=== PATIENT | female | born 1940 | race Caucasian/White ===

== ENCOUNTER 2018-04-07 14:25 | Inpatient (IN) ==
[2018-04-07] MEDS ORDERED: NS 1,000 ML IV ONE ×2 (15:07→17:05)
[2018-04-07 15:37] LABS: BASO# 0.02 X1000 (0.0-0.2); BASO% 0.4 % (0.0-0.8); EOS# 0.05 X1000 (0.0-0.7); EOS% 0.9 % (0.0-10.0); HEMOGLOBIN 10.4 g/dL (12.0-16.0); IMM GRAN# 0.01 X1000 (0.0-0.04); IMM GRAN% 0.2 % (0.0-0.5); LYMPH# 1.07 X1000 (1.2-3.4); MCH 30.3 PG (27-31); MCHC 33.5 g/dL (33-37); MCV 90.4 FL (81-99); MONO# 0.86 X1000 (0.11-0.59); MONO% 15.3 % (1.7-9.3); MPV 9.7 FL (7.4-10.4); NEUT# 3.61 X1000 (1.4-6.5); NEUT% 64.2 % (42.2-75.2); PLT 352 X1000 (130-400); RBC 3.43 XMIL (4.2-5.4); RDW 11.9 % (11.5-14.5); WBC 5.62 X1000 (4.8-10.8)
[2018-04-07 16:00] LABS: ESTIMATED GFR > 60
[2018-04-07 16:21] LABS: AGAP 7; ALBUMIN 3.5 g/dL (3.5-5.0); ALKALINE PHOSPHATASE 87 U/L (32-104); BUN 10 mg/dL (8-22); CHLORIDE 83 mmol/L (98-107); COSMO 238; CREATININE 0.7 mg/dL (0.5-0.9); GLUCOSE 136 mg/dL (70-104); GOT 18 U/L (10-30); GPT 11 U/L (10-36); POTASSIUM 4.9 mmol/L (3.5-5.1); TCO2 27 mmol/L (25-35); TOTAL PROTEIN 6.6 g/dL (6.3-8.3)
[2018-04-07 16:22] LABS: SODIUM 117 mmol/L (136-145)
--- NOTE | 2018-04-07 18:55 | PROVIDER DOCUMENTATION ---
This chart was entered by Mile Ambrocio Scribe, acting as scribe for Zuleima Mae MD. HPI-General Adult - General Chief Complaint: Abnormal Lab[s] Stated Complaint: SENT FROM [facility] FOR FLUIDS Time Seen by Provider: 04/07/18 14:59 Source: patient, other ([facility] tech) Allergies/Adverse Reactions: Patient Allergies Allergy/AdvReac Type Severity Reaction Status Date / Time acetaminophen [From Tylenol] Allergy RASH Verified 12/20/14 21:18 aspirin Allergy SWELLING Verified 12/20/14 21:18 benztropine mesylate * Allergy Unknown Verified 12/20/14 21:18 [From Cogentin] Cephalosporins Allergy RASH Verified 12/20/14 21:18 codeine Allergy RASH Verified 12/20/14 21:18 divalproex sodium Allergy SWELLING Verified 12/20/14 21:19 [From Depakote] Penicillins Allergy RASH Verified 12/20/14 21:18 Sulfa (Sulfonamide AdvReac ITCHING Verified 12/18/14 10:25 Antibiotics) Home Medications: Home Medication List Medication Instructions Recorded Confirmed Last Taken Type ATORVAstatin [Lipitor] 20 mg PO DAILY 01/16/18 02/10/18 Unknown History Clopidogrel [Plavix] 75 mg PO DAILY #0 02/01/18 02/10/18 Unknown Rx Metformin [Glucophage] 500 mg PO DAILY 02/10/18 04/02/18 Unknown History Donepezil HCl [Aricept] 5 mg PO DAILY #30 tablet 03/01/18 Unknown Rx Quetiapine [Seroquel] 25 mg PO QHS tablet 03/01/18 Unknown Rx Ibuprofen [Ibu-200] 400 mg PO Q8H PRN PRN 04/02/18 04/02/18 Unknown History Melatonin/Pyridoxine [Melatonin 5 5 mg PO HS 04/02/18 04/02/18 Unknown History mg Tablet] Memantine [Namenda] 5 mg PO BID 04/02/18 04/02/18 Unknown History Ziprasidone [Geodon] 40 mg PO QHS 04/02/18 04/02/18 Unknown History - History of Present Illness -Gen Adult Nature of Presenting Problems: 77 yowf presents to ed from [facility]. pt was sent to ed for fluids due to abnormal labs. pt has pulled x2 IV's out today while at [facility] and has been agitated with freq falls. pt had negative CT 04/06/18 Location of Pain/Injury: reports: none Pain Radiation: reports: no radiation Quality of Pain: reports: none Severity: reports: mild Onset/Duration: reports: unsure Context/Activities at Onset: reports: light activity Modifying Factors: improves with: nothing Associated Symptoms: denies: back/neck pain, chest pain, cough, dizziness, fever /chills, shortness of breath, vomiting Similar Symptoms Previously?: Yes Recently seen or treated by another doctor?: Yes (recently seen in ed) Review of Systems - Adult - REVIEW OF SYSTEMS - ADULT ROS:: per [facility] tech Constitutional: denies: chills, fever Eyes: denies: blurred vision, double vision Ears, Nose, Mouth & Throat: reports: no symptoms reported Cardiovascular: denies: chest pain, palpitations Respiratory: denies: shortness of breath, wheezing Gastrointestinal: denies: abdominal pain, diarrhea, nausea, vomiting Genitourinary: reports: no symptoms reported Musculoskeletal: denies: back pain, neck pain Integumentary: reports: no symptoms reported Neurological: denies: dizziness/vertigo, headache/migraines Psychiatric: reports: no symptoms reported Endocrine: reports: no symptoms reported Hematologic/Lymphatic: reports: no symptoms reported Allergic/Immunologic: reports: no symptoms reported All Other Systems: Reviewed and Negative Past History - Adult - PAST MEDICAL HISTORY-ADULT Review of Records: reports: Old Records Reviewed, Nursing Assessment Review, Medications Reviewed, Social history reviewed & non-contributory. Major Childhood Illnesses: reports: denies history Cardiovascular: reports: hyperlipidemia Respiratory: reports: COPD Gastrointestinal: reports: GERD Obstetrical/Gynecological: reports: denies history Genitourinary: reports: denies history Musculoskeletal: reports: arthritis Neurological: reports: dementia Psychiatric: reports: anxiety, psychiatric problems, schizophrenia Endocrine/Immune: reports: anemia, thyroid disorder Other Conditions: reports: denies history - PRIOR SURGERIES/PROCEDURES Surgical/Procedure History: reports: tonsillectomy, other, appendectomy - IMMUNIZATION STATUS Childhood Immunizations: NUTD, See Nurse Assessment Flu Vaccine: See Nurse Assessment - FAMILY HISTORY Family History: reviewed, not pertinent - SOCIAL HISTORY Smoking: other (unknown) Living Situation: other ([facility]) Physical Exam-General - PHYSICAL EXAM-ADULT Initial Vital Signs Reviewed: Yes - CONSTITUTIONAL General Appearance: alert, no apparent distress, thin - EYES Eyes: PERRL/EOMI, pink conjunctivae - HEAD, EARS, NOSE, MOUTH & THROAT HENMT: moist mucous membranes - NECK Neck: non-tender, full range of motion, supple, normal inspection - RESPIRATORY Respiratory: chest non-tender, lungs clear, normal breath sounds - CARDIOVASCULAR Cardiovascular: normal peripheral pulses, regular rate, rhythm - GASTROINTESTINAL (ABDOMEN) Abdominal Exam: normal bowel sounds, non tender - LYMPHATIC Lymphatic: no adenopathy - MUSCULOSKELETAL Back Exam: normal inspection, no CVA tenderness, no vertebral tenderness Extremity: normal range of motion, no pedal edema, no calf tenderness, normal capillary refill, pelvis stable - SKIN Integumentary: normal turgor, warm/dry, ecchymosis (to face and BUE) - PSYCHIATRIC Psych/Mental Status: normal mood/affect, normal thought content, normal thought process Progress - PLAN OF CARE/RESULTS Progress/Plan/Lab Results: Vital Signs - 8 hr 04/07/18 14:44 Temperature 98 F Pulse Rate 83 Respiratory Rate 18 Blood Pressure 121/80 O2 Sat by Pulse Oximetry 99 Orders Category Date Time Status CBC WITH ELECTRONIC DIFF [HEME] Stat Lab 04/07/18 14:50 Ordered COMPREHENSIVE METABOLIC PANEL [CHEM] Stat Lab 04/07/18 14:58 Ordered Result Diagrams: 04/07/18 15:15 04/07/18 18:05 - REASSESSMENT Reassessment #1 Time Reassessed: 16:55 ( at bedside) Status: improving - CONSULTS/PCP/HOSPITALIST Notification #1 *Consult/PCP/Hospitalist*: Dr. Blunt Time Discussed: 19:15 Consult Disposition: Admit Departure - Departure Date of Disposition Decision: 04/07/18 Time of Disposition Decision: 19:08 DIAGNOSIS: Hyponatremia Disposition: ADMITTED INPATIENT 09 Certified Medical Emergency: Urgent Condition: Poor Referrals and Follow-Ups: None,PCP [Primary Care Provider] - - Critical Care Note This patient required my direct & personal management of CC.: Yes Total Time (mins): 45 Critical Care Statement: This patient required my direct personal management to treat or rule out processes, the absence of which, could potentiallly result in sudden, clinically significant life or limb threatening deterioration. Attestation - Physician/ TENISHA Attestation Patient care was provided by Advanced Practice Provider:: No The physician spent face to face time with patient:: Yes Advanced Practice Provider documentation review:: Supervising physician onsite and consulted in the evaluation and care of this patient. The physician did have a face to face encounter with the patient. This chart was documented by the indicated scribe, (Mile Ambrocio Scribe) and accurately reflects the services I performed and decisions made by me, Zuleima Mae MD, as attested by the provider's signature.
[2018-04-07 19:01] LABS: ESTIMATED GFR > 60
[2018-04-07 19:09] LABS: AGAP 8; BUN 8 mg/dL (8-22); CALCIUM 7.8 mg/dL (8.8-10.2); CHLORIDE 87 mmol/L (98-107); COSMO 238; CREATININE 0.6 mg/dL (0.5-0.9); GLUCOSE 158 mg/dL (70-104); POTASSIUM 4.6 mmol/L (3.5-5.1); TCO2 23 mmol/L (25-35)
[2018-04-07 19:11] LABS: SODIUM 117 mmol/L (136-145)
[2018-04-07] MEDS ORDERED: SAMSCA PO ONE (21:45)
[2018-04-07] MEDS ORDERED: DESYREL PO PRN ×2 (21:49→22:00)
[2018-04-07] MEDS: NS 1,000 ML IV SCH (22:00)
[2018-04-08] MEDS: NAMENDA PO SCH ×4 (00:47→20:42)
[2018-04-08] MEDS: PRILOSEC PO SCH (06:17)
[2018-04-08] MEDS: NS 1,000 ML IV SCH (06:33)
[2018-04-08 07:04] LABS: BASO# 0.02 X1000 (0.0-0.2); BASO% 0.4 % (0.0-0.8); EOS# 0.06 X1000 (0.0-0.7); EOS% 1.2 % (0.0-10.0); HEMATOCRIT 34.1 % (37.0-47.0); HEMOGLOBIN 11.6 g/dL (12.0-16.0); IMM GRAN# 0.01 X1000 (0.0-0.04); IMM GRAN% 0.2 % (0.0-0.5); LYMPH# 1.07 X1000 (1.2-3.4); LYMPH% 21.5 % (20.5-51.1); MCH 31.4 PG (27-31); MCV 92.4 FL (81-99); MONO# 0.64 X1000 (0.11-0.59); MONO% 12.9 % (1.7-9.3); MPV 9.6 FL (7.4-10.4); NEUT# 3.17 X1000 (1.4-6.5); NEUT% 63.8 % (42.2-75.2); PLT 344 X1000 (130-400); RBC 3.69 XMIL (4.2-5.4); RDW 12.3 % (11.5-14.5); WBC 4.97 X1000 (4.8-10.8)
[2018-04-08 07:14] LABS: AGAP 13; BUN 5 mg/dL (8-22); CALCIUM 8.9 mg/dL (8.8-10.2); CHLORIDE 97 mmol/L (98-107); COSMO 258; CREATININE 0.5 mg/dL (0.5-0.9); ESTIMATED GFR > 60; GLUCOSE 93 mg/dL (70-104); POTASSIUM 4.5 mmol/L (3.5-5.1); SODIUM 130 mmol/L (136-145); TCO2 20 mmol/L (25-35)
[2018-04-08 08:02] LABS: BILIRUBIN URINE NEGATIVE (NEGATIVE); BLOOD URINE NEGATIVE (NEGATIVE); CLARITY CLEAR (CLEAR); COLOR YELLOW; GLUCOSE URINE NEGATIVE (NEGATIVE); KETONE URINE NEGATIVE (NEGATIVE); LEUKOCYTES URINE NEGATIVE (NEGATIVE); NITRITE URINE NEGATIVE (NEGATIVE); PROTEIN URINE NEGATIVE (NEGATIVE); SP GRAVITY URINE 1.005; UROBILINOGEN URINE NORMAL
[2018-04-08 08:11] LABS: URINE EPITHELIAL CELLS <10 /HPF (<10); URINE SOURCE CLEAN CATCH
[2018-04-08] MEDS: ARICEPT PO SCH (10:03)
[2018-04-08] MEDS: FOLIC ACID PO SCH (10:03)
[2018-04-08] MEDS: NICODERM PATCH TD SCH (10:03)
[2018-04-08] MEDS: MAG-OX PO SCH ×2 (10:03→20:42)
[2018-04-08] MEDS: GEODON PO SCH (10:03)
--- NOTE | 2018-04-08 10:48 | HISTORY AND PHYSICAL ---
CHIEF COMPLAINT: Low sodium. HISTORY OF PRESENT ILLNESS: This is a 77-year-old female with history of dementia, Alzheimer's, schizophrenia, bipolar disorder, COPD, hypertension, hypothyroidism. She presents to the emergency room from [facility] for treatment for hyponatremia. Labs were drawn earlier in the day and she had a sodium of 117. This was repeated in the emergency room and the patient was given a dose of Samsca. The patient had been hospitalized in early January and then once again February 10 for hyponatremia once again. During the admission on the , Celexa and trazodone were held and it was noted that sodium increased. They were restarted and it was noted that sodium did decrease once again. PAST MEDICAL HISTORY: According to the chart the patient has dementia, COPD, schizophrenia, bipolar disorder, Alzheimer's, COPD, hypertension, hypothyroid, hyperlipidemia, diabetes, osteoarthritis, breast cancer, and vitamin D deficiency. PAST SURGICAL HISTORY: Laparotomy, tonsillectomy, appendectomy, and left knee surgery. SOCIAL HISTORY: She is currently a patient at [facility]. ALLERGIES: According to her chart are Tylenol, aspirin, Cogentin, cephalosporins, codeine, Depakote, penicillin, and sulfa. HOME MEDICATIONS: A list will be obtained from her medications from [facility] and continued as is appropriate. REVIEW OF SYSTEMS: Unable to obtain as the patient is drowsy at this time. PHYSICAL EXAMINATION: GENERAL: This is a 77-year-old female who is lying in the bed, in no distress. VITAL SIGNS: Blood pressure is 115/81, with a heart rate of 81, respirations are 18. EYES: Pupils are sluggish to react. Sclerae anicteric. HENT: Head is normocephalic, atraumatic. Mucous membranes are moist. NECK: Supple. Trachea midline. CARDIOVASCULAR: Regular rate and rhythm. S1 and S2 are appreciated. PULMONARY: Breath sounds are clear. No increased work of breathing noted. GASTROINTESTINAL: Soft, nondistended, with bowel sounds in all 4 quadrants. NEUROLOGIC: She is sedated. She does move all extremities at random. ASSESSMENT AND PLAN: 1. Hyponatremia. We will hold the patient's trazodone. Repeat labs this morning. The patient's sodium is 130 this morning. Of note, she was given Samsca last night. We will hold her trazodone as in the past sodium has dropped while being on trazodone and will monitor. 2. Diabetes mellitus. She will be placed on a diabetic diet. We will continue home medications as appropriate. We will trend blood sugars. 3. Recent Escherichia coli urinary tract infection. She had a culture return on the with ESBL negative E. coli, for which she was treated with 1 g of Rocephin IV followed by Levaquin 750 p.o. and Macrobid 100 mg b.i.d. for 5 days. We will complete the Macrobid and monitor. 4. History of hypothyroid. She is on no medications. TSH was 1.7. 5. History of schizophrenia, bipolar disorder. We will continue medications as is appropriate. 6. Alzheimer's dementia. We will continue Namenda and Aricept. 7. Further treatments pending hospital course. Dictated by REUBEN Fisher for Geo Warren MD This chart was documented by, REUBEN Fisher and accurately reflects the services performed, treatment plan and medical decisions as attested by the providers signature Geo Warren MD. cc: REUBEN Fisher MD
[2018-04-08] MEDS ORDERED: PYRIDOXINE PO SCH (21:00)
[2018-04-08] MEDS ORDERED: MELATONIN PO SCH (21:00)
[2018-04-09] MEDS: NS 1,000 ML IV SCH ×3 (00:09→15:05)
[2018-04-09] MEDS: PRILOSEC PO SCH (06:11)
[2018-04-09 06:58] LABS: BASO# 0.03 X1000 (0.0-0.2); BASO% 0.4 % (0.0-0.8); EOS# 0.06 X1000 (0.0-0.7); EOS% 0.9 % (0.0-10.0); HEMATOCRIT 31.4 % (37.0-47.0); HEMOGLOBIN 10.5 g/dL (12.0-16.0); IMM GRAN# 0.02 X1000 (0.0-0.04); IMM GRAN% 0.3 % (0.0-0.5); LYMPH# 1.49 X1000 (1.2-3.4); LYMPH% 21.5 % (20.5-51.1); MCH 30.4 PG (27-31); MCHC 33.4 g/dL (33-37); MONO# 0.92 X1000 (0.11-0.59); MONO% 13.3 % (1.7-9.3); MPV 9.9 FL (7.4-10.4); NEUT# 4.42 X1000 (1.4-6.5); NEUT% 63.6 % (42.2-75.2); PLT 428 X1000 (130-400); RBC 3.45 XMIL (4.2-5.4); RDW 12.2 % (11.5-14.5); WBC 6.94 X1000 (4.8-10.8)
[2018-04-09 07:13] LABS: AGAP 9; BUN 6 mg/dL (8-22); CALCIUM 9.5 mg/dL (8.8-10.2); CHLORIDE 94 mmol/L (98-107); COSMO 260; CREATININE 0.6 mg/dL (0.5-0.9); ESTIMATED GFR > 60; GLUCOSE 122 mg/dL (70-104); SODIUM 130 mmol/L (136-145); TCO2 28 mmol/L (25-35)
[2018-04-09] MEDS ORDERED: SAMSCA PO SCH (09:00)
[2018-04-09] MEDS: GEODON PO SCH (09:26)
[2018-04-09] MEDS: ARICEPT PO SCH (09:26)
[2018-04-09] MEDS: MAG-OX PO SCH ×2 (09:26→20:58)
[2018-04-09] MEDS: FOLIC ACID PO SCH (09:26)
[2018-04-09] MEDS: NAMENDA PO SCH ×2 (09:26→20:58)
[2018-04-09] MEDS: NICODERM PATCH TD SCH (09:27)
--- NOTE | 2018-04-09 10:57 | PROGRESS NOTE ---
DATE: 04/09/2018 SUBJECTIVE: Patient is in a very good mood this morning and is sitting in her bed, reading a book. She denies having any acute complaints. OBJECTIVE: Vital Signs: Temperature 98 degrees, pulse 70 per minute, respiratory rate 18 per minute, blood pressure 146/73, pulse oximetry 90 percent on room air. General: The patient is alert and awake. She does not appear to be in any acute distress. Cardiovascular System: First and second heart sounds are audible without any murmurs or gallops. Respiratory System: No respiratory distress noted. Bilateral lung air entry is good without any rales or rhonchi. Gastrointestinal System: Abdomen is soft and nondistended. Normal bowel sounds are present. DIAGNOSTIC DATA: CBC shows hemoglobin of 10.5 and hematocrit 31.4. This is stable when compared to her previous labs. Chemistry showed sodium levels of 130, which was the same yesterday. Rest of the basic metabolic panel is nondiagnostic. IMPRESSION: 1. Hyponatremia. The patient's sodium levels have improved and it was thought to be secondary to her psych medication trazodone that has been discontinued. She appears to be in good shape as far as her hyponatremia is concerned. 2. Type 2 diabetes mellitus. The patient's glucose levels are slightly elevated, but overall they are stable. I am going to obtain hemoglobin A1c today. 3. Schizophrenia and Alzheimer dementia have been stable. The patient will continue with donepezil, along with memantine and Geodon. 4. The patient has been abandoned by her family, and there is an issue of her being transferred back to the assisted living facility. Therefore, [facility] has been involved and we will see what happens next. cc: Everardo Tenorio MD
[2018-04-09 11:05] LABS: HEMOGLOBIN A1C 6.4 % (4.8-6.0)
[2018-04-09] MEDS: ATIVAN IM PRN (11:21)
[2018-04-10 06:09] LABS: BASO# 0.04 X1000 (0.0-0.2); BASO% 0.6 % (0.0-0.8); EOS# 0.09 X1000 (0.0-0.7); EOS% 1.4 % (0.0-10.0); HEMATOCRIT 32.2 % (37.0-47.0); HEMOGLOBIN 10.7 g/dL (12.0-16.0); IMM GRAN# 0.01 X1000 (0.0-0.04); IMM GRAN% 0.2 % (0.0-0.5); LYMPH% 25.4 % (20.5-51.1); MCH 30.7 PG (27-31); MCHC 33.2 g/dL (33-37); MCV 92.3 FL (81-99); MONO# 0.79 X1000 (0.11-0.59); MONO% 12.5 % (1.7-9.3); MPV 9.6 FL (7.4-10.4); NEUT# 3.78 X1000 (1.4-6.5); NEUT% 59.9 % (42.2-75.2); PLT 460 X1000 (130-400); RBC 3.49 XMIL (4.2-5.4); RDW 12.8 % (11.5-14.5); WBC 6.31 X1000 (4.8-10.8)
[2018-04-10] MEDS: NS 1,000 ML IV SCH ×3 (06:21→22:43)
[2018-04-10 06:22] LABS: AGAP 10; BUN 12 mg/dL (8-22); CALCIUM 9.6 mg/dL (8.8-10.2); CHLORIDE 93 mmol/L (98-107); COSMO 263; CREATININE 0.7 mg/dL (0.5-0.9); ESTIMATED GFR > 60; GLUCOSE 114 mg/dL (70-104); POTASSIUM 4.1 mmol/L (3.5-5.1); SODIUM 131 mmol/L (136-145); TCO2 28 mmol/L (25-35)
[2018-04-10] MEDS: PRILOSEC PO SCH (08:21)
[2018-04-10] MEDS: MAG-OX PO SCH ×2 (08:22→20:28)
[2018-04-10] MEDS: FOLIC ACID PO SCH (08:22)
[2018-04-10] MEDS: GEODON PO SCH (08:22)
[2018-04-10] MEDS: NAMENDA PO SCH ×2 (08:22→20:28)
[2018-04-10] MEDS: ARICEPT PO SCH (08:22)
[2018-04-10] MEDS: NICODERM PATCH TD SCH (10:32)
--- NOTE | 2018-04-10 11:36 | PROGRESS NOTE ---
DATE: 04/10/2018 SUBJECTIVE: Patient denies having any acute complaints this morning. OBJECTIVE: Vital Signs: Temperature 97.6 degrees, pulse 80 per minute, respiratory rate 16 per minute, blood pressure 129/71, pulse oximetry 100% on room air. General: Patient is alert and oriented x3. She does not appear to be in any acute distress this morning. Cardiovascular System: First and second heart sounds are audible without any murmurs or gallops. Respiratory System: No respiratory distress noted. Bilateral lung air entry is good without any rales or rhonchi. Gastrointestinal System: Abdomen is soft and nondistended. Normal bowel sounds are present. DIAGNOSTIC DATA: CBC shows stable hemoglobin and hematocrit of 10.7 and 32.2. Rest of the CBC is nondiagnostic. Basic metabolic panel showed improved sodium level of 131. Rest of the BMP is nondiagnostic. IMPRESSION: 1. Hyponatremia. 2. Type 2 diabetes mellitus. 3. Schizophrenia. 4. Alzheimer dementia. PLAN: 1. Patient's sodium levels have improved, and they were thought to be secondary to her trazodone that has been discontinued. She appears to be in good shape, and no further treatment will be provided in that regard, except for continued monitoring. 2. Diabetes, schizophrenia and Alzheimer dementia have been stable. Therefore, we are going to continue with her current medications and care. 3. Patient has been abandoned by her family and the issue has been transferred to [facility]. [facility] has been involved and they are going to find a place for the patient. cc: Everardo Tenorio MD
[2018-04-11] MEDS: NS 1,000 ML IV SCH ×2 (06:19→22:00)
[2018-04-11] MEDS: PRILOSEC PO SCH (06:22)
[2018-04-11 07:31] LABS: AGAP 9; BUN 12 mg/dL (8-22); CALCIUM 9.1 mg/dL (8.8-10.2); CHLORIDE 96 mmol/L (98-107); COSMO 264; CREATININE 0.7 mg/dL (0.5-0.9); ESTIMATED GFR > 60; GLUCOSE 118 mg/dL (70-104); POTASSIUM 4.2 mmol/L (3.5-5.1); SODIUM 131 mmol/L (136-145); TCO2 26 mmol/L (25-35)
[2018-04-11] MEDS: GEODON PO SCH (08:16)
[2018-04-11] MEDS: ARICEPT PO SCH (08:16)
[2018-04-11] MEDS: MAG-OX PO SCH ×2 (08:16→20:11)
[2018-04-11] MEDS: NICODERM PATCH TD SCH (08:17)
[2018-04-11] MEDS: NAMENDA PO SCH ×2 (08:17→20:11)
[2018-04-11] MEDS: FOLIC ACID PO SCH (08:17)
[2018-04-12] MEDS: PRILOSEC PO SCH (06:14)
[2018-04-12] MEDS: NS 1,000 ML IV SCH ×3 (06:48→14:08)
[2018-04-12 07:12] LABS: BASO# 0.05 X1000 (0.0-0.2); BASO% 0.7 % (0.0-0.8); EOS# 0.35 X1000 (0.0-0.7); EOS% 4.7 % (0.0-10.0); HEMATOCRIT 36.2 % (37.0-47.0); HEMOGLOBIN 11.9 g/dL (12.0-16.0); IMM GRAN# 0.01 X1000 (0.0-0.04); IMM GRAN% 0.1 % (0.0-0.5); LYMPH# 2.37 X1000 (1.2-3.4); LYMPH% 31.7 % (20.5-51.1); MCH 30.3 PG (27-31); MCHC 32.9 g/dL (33-37); MCV 92.1 FL (81-99); MONO# 0.71 X1000 (0.11-0.59); MONO% 9.5 % (1.7-9.3); MPV 9.4 FL (7.4-10.4); NEUT# 3.99 X1000 (1.4-6.5); NEUT% 53.3 % (42.2-75.2); PLT 514 X1000 (130-400); RBC 3.93 XMIL (4.2-5.4); RDW 12.6 % (11.5-14.5); WBC 7.48 X1000 (4.8-10.8)
[2018-04-12 07:22] LABS: AGAP 11; ALBUMIN 3.9 g/dL (3.5-5.0); ALKALINE PHOSPHATASE 108 U/L (32-104); BUN 9 mg/dL (8-22); CALCIUM 9.4 mg/dL (8.8-10.2); CHLORIDE 91 mmol/L (98-107); COSMO 261; CREATININE 0.6 mg/dL (0.5-0.9); ESTIMATED GFR > 60; GLUCOSE 131 mg/dL (70-104); GOT 19 U/L (10-30); GPT 14 U/L (10-36); POTASSIUM 3.8 mmol/L (3.5-5.1); SODIUM 130 mmol/L (136-145); TCO2 27 mmol/L (25-35); TOTAL PROTEIN 7.1 g/dL (6.3-8.3)
[2018-04-12] MEDS: ARICEPT PO SCH (08:50)
[2018-04-12] MEDS: MAG-OX PO SCH ×2 (08:51→20:40)
[2018-04-12] MEDS: BLISTEX MEDICATED BERRY LIP BALM TOP PRN (08:51)
[2018-04-12] MEDS: FOLIC ACID PO SCH (08:51)
[2018-04-12] MEDS: NICODERM PATCH TD SCH (08:52)
[2018-04-12] MEDS: NAMENDA PO SCH ×2 (08:52→20:40)
[2018-04-12] MEDS: GEODON PO SCH (08:52)
--- NOTE | 2018-04-12 09:07 | PROGRESS NOTE ---
DATE: 04/11/2018 SUBJECTIVE: The patient denies having any acute complaints this morning. OBJECTIVE: Vital signs: Temperature 97.5, pulse rate is 79, respiratory rate 18 per minute, blood pressure 153/47, pulse ox 100 percent on room air.General: The patient is alert and oriented. She does not appear to be in any acute distress. Cardiovascular: First and second heart sounds are audible without any murmurs or gallops. Respiratory: No respiratory distress noted. Bilateral air entry equal. No rales or rhonchi. Gastrointestinal: Abdomen is soft and nondistended. It is nontender on palpation. Normal bowel sounds are present. DIAGNOSTIC DATA: CBC shows sodium levels of 131. Rest of the basic metabolic panel is nondiagnostic. IMPRESSION: 1. Hyponatremia that has now improved and stable. 2. Type 2 diabetes mellitus. 3. Schizophrenia, Alzheimer's dementia all of which are also stable. PLAN: The patient's sodium levels are now stabilized and were thought to be secondary to trazodone, which she was taking prior to this admission. We will continue to monitor her sodium levels for now. Diabetes, schizophrenia, and Alzheimer's dementia are all currently stable. The patient has been abandoned by her family and the issue has been referred to [facility]. [facility] in place for patient, and we will wait for that help. cc: Everardo Tenorio MD
--- NOTE | 2018-04-12 15:48 | PROGRESS NOTE ---
DATE: 04/12/2018 SUBJECTIVE: Patient has no major complaints. OBJECTIVE: Blood pressure 171/94, heart rate of 91, respiratory rate 16, temperature 97.8 degrees, 98% on room air.Cardiovascular: Regular rate and rhythm. Pulmonary: Bilateral breath sounds, clear to auscultation. GI: Soft, nontender, nondistended. LABORATORY DATA: White count is 7, hemoglobin and hematocrit 11, 36, platelets 514,000, sodium 130. PROBLEM LIST: 1. Hyponatremia which appears to be stable. Unclear if this is syndrome of inappropriate antidiuretic hormone secretion. It is improved I went ahead and dosed her with Samsca. She has responded to that in the past although has not really improved her mental status . 2. Type 2 diabetes is stable currently. 3. Schizophrenia, Alzheimer's. She is on her current medication. She seems pretty stable at the moment. 4. Disposition pending her clinical status. I anticipate discharge soon. There is report of Department [employer] being involved but that is not actually the case. Department [employer] Human [employer] was spoken to today and she is not an active open case so we are going to try to get her back to her regular facility. She has not been belligerent here. Her sodium is stable I think enough for discharge so continue to follow otherwise. cc: Adan Scott MD
[2018-04-12] MEDS: ATIVAN IM PRN (20:40)
[2018-04-12] MEDS: MELATONIN PO SCH (20:40)
[2018-04-13] MEDS: PRILOSEC PO SCH (06:08)
[2018-04-13 07:04] LABS: BASO# 0.03 X1000 (0.0-0.2); BASO% 0.5 % (0.0-0.8); EOS# 0.27 X1000 (0.0-0.7); EOS% 4.2 % (0.0-10.0); HEMATOCRIT 36.5 % (37.0-47.0); HEMOGLOBIN 12.3 g/dL (12.0-16.0); IMM GRAN# 0.01 X1000 (0.0-0.04); IMM GRAN% 0.2 % (0.0-0.5); LYMPH# 2.11 X1000 (1.2-3.4); LYMPH% 32.6 % (20.5-51.1); MCH 30.6 PG (27-31); MCHC 33.7 g/dL (33-37); MCV 90.8 FL (81-99); MONO# 0.59 X1000 (0.11-0.59); MONO% 9.1 % (1.7-9.3); MPV 9.3 FL (7.4-10.4); NEUT# 3.46 X1000 (1.4-6.5); NEUT% 53.4 % (42.2-75.2); PLT 548 X1000 (130-400); RBC 4.02 XMIL (4.2-5.4); RDW 12.2 % (11.5-14.5); WBC 6.47 X1000 (4.8-10.8)
[2018-04-13 07:20] LABS: ESTIMATED GFR > 60
[2018-04-13 07:26] LABS: AGAP 10; BUN 9 mg/dL (8-22); CALCIUM 9.3 mg/dL (8.8-10.2); CHLORIDE 87 mmol/L (98-107); COSMO 250; CREATININE 0.6 mg/dL (0.5-0.9); GLUCOSE 131 mg/dL (70-104); POTASSIUM 4.3 mmol/L (3.5-5.1); SODIUM 124 mmol/L (136-145); TCO2 27 mmol/L (25-35)
[2018-04-13] MEDS: FOLIC ACID PO SCH (08:52)
[2018-04-13] MEDS: MAG-OX PO SCH ×2 (08:53→20:49)
[2018-04-13] MEDS: NAMENDA PO SCH ×2 (08:53→20:49)
[2018-04-13] MEDS: NICODERM PATCH TD SCH (08:53)
[2018-04-13] MEDS: ARICEPT PO SCH (08:53)
[2018-04-13] MEDS: GEODON PO SCH (08:53)
[2018-04-13] MEDS ORDERED: SAMSCA PO ONE (12:00)
--- NOTE | 2018-04-13 17:42 | PROGRESS NOTE ---
DATE: 04/13/2018 SUBJECTIVE: Patient has no focal complaints. OBJECTIVE: Vital signs: Blood pressure 104/51, heart rate was 58, respiratory rate of 16, temperature 97.4 degrees, 96% on room air. Cardiovascular: Regular rate and rhythm. Pulmonary: Bilateral breath sounds. Clear to auscultation. GI: Soft, nontender, nondistended. Bowel sounds are positive. LABORATORY DATA: Her sodium is 124. Rest of her labs look okay. PROBLEM LIST: 1. Hyponatremia which is chronic. I do think she may need long-acting Samsca. We just cannot keep her sodium above otherwise, but at the same time I would not consider particularly symptomatic. 2. Dementia, Alzheimer's type. She is pretty well behaved but the plan will be to stabilize her and then have [facility] re-evaluate her before transfer. We will see what her sodium level is tomorrow. cc: Adan Scott MD
[2018-04-13 19:19] LABS: AGAP 10; BUN 13 mg/dL (8-22); CALCIUM 9.2 mg/dL (8.8-10.2); CHLORIDE 93 mmol/L (98-107); COSMO 266; CREATININE 0.9 mg/dL (0.5-0.9); ESTIMATED GFR > 60; GLUCOSE 182 mg/dL (70-104); POTASSIUM 4.4 mmol/L (3.5-5.1); SODIUM 130 mmol/L (136-145); TCO2 28 mmol/L (25-35)
[2018-04-13] MEDS: SODIUM CHLORIDE PO SCH (20:49)
[2018-04-13] MEDS: MELATONIN PO SCH (20:49)
[2018-04-14] MEDS: PRILOSEC PO SCH (06:33)
[2018-04-14 07:40] LABS: BASO# 0.02 X1000 (0.0-0.2); BASO% 0.3 % (0.0-0.8); EOS# 0.14 X1000 (0.0-0.7); EOS% 2.3 % (0.0-10.0); HEMATOCRIT 32.2 % (37.0-47.0); HEMOGLOBIN 10.7 g/dL (12.0-16.0); IMM GRAN# 0.02 X1000 (0.0-0.04); IMM GRAN% 0.3 % (0.0-0.5); LYMPH# 2.19 X1000 (1.2-3.4); LYMPH% 36.1 % (20.5-51.1); MCH 30.7 PG (27-31); MCHC 33.2 g/dL (33-37); MCV 92.3 FL (81-99); MONO# 0.62 X1000 (0.11-0.59); MONO% 10.2 % (1.7-9.3); MPV 9.7 FL (7.4-10.4); NEUT# 3.08 X1000 (1.4-6.5); NEUT% 50.8 % (42.2-75.2); PLT 503 X1000 (130-400); RBC 3.49 XMIL (4.2-5.4); RDW 12.6 % (11.5-14.5); WBC 6.07 X1000 (4.8-10.8)
[2018-04-14 07:59] LABS: AGAP 10; BUN 14 mg/dL (8-22); CALCIUM 9.1 mg/dL (8.8-10.2); CHLORIDE 96 mmol/L (98-107); COSMO 269; CREATININE 0.7 mg/dL (0.5-0.9); ESTIMATED GFR > 60; GLUCOSE 132 mg/dL (70-104); POTASSIUM 4.4 mmol/L (3.5-5.1); SODIUM 133 mmol/L (136-145); TCO2 26 mmol/L (25-35)
[2018-04-14] MEDS: NICODERM PATCH TD SCH (09:14)
[2018-04-14] MEDS: SODIUM CHLORIDE PO SCH ×3 (09:14→21:09)
[2018-04-14] MEDS: ARICEPT PO SCH ×3 (09:14→12:07)
[2018-04-14] MEDS: NAMENDA PO SCH ×4 (09:14→21:09)
[2018-04-14] MEDS: MAG-OX PO SCH ×2 (09:15→21:09)
[2018-04-14] MEDS: FOLIC ACID PO SCH (09:15)
[2018-04-14] MEDS: GEODON PO SCH ×3 (09:15→12:07)
[2018-04-14] MEDS: SAMSCA PO SCH (12:06)
--- NOTE | 2018-04-14 15:53 | PROGRESS NOTE ---
DATE: 04/14/2018 SUBJECTIVE: Patient has no focal complaints. She is also very recalcitrant. She did kind of bundled up when asked her and refused to participate completely with the exam, but other than that, she has been stable. This morning she also refused her medications. OBJECTIVE: Vital signs: Blood pressure 123/53, heart rate 90, respiratory rate 18, temperature 98.2 degrees. Cardiovascular: Regular rate and rhythm. Pulmonary: Bilateral breath sounds. Clear to auscultation. GI: Soft, nontender, nondistended. Bowel sounds are positive. LABORATORY DATA: Her sodium is up to 133, which is good. ASSESSMENT AND PLAN: 1. 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 She will likely need long-term Samsca or at least a course just to see if that maintains her hyponatremia. She did agree to take it this morning. 2. Alzheimer's dementia with underlying psychotic disorder. She is on Geodon. [facility] will re-evaluate her once her sodium has been stable for 48 hours, I believe. So, we will check her numbers tomorrow and hopefully we can get her home. cc: Adan Scott MD
[2018-04-14] MEDS: MELATONIN PO SCH (21:09)
[2018-04-14] MEDS: ATIVAN IM PRN (21:09)
[2018-04-15] MEDS: PRILOSEC PO SCH (06:05)
[2018-04-15 07:30] LABS: AGAP 9; BUN 15 mg/dL (8-22); CALCIUM 9.3 mg/dL (8.8-10.2); CHLORIDE 95 mmol/L (98-107); COSMO 268; CREATININE 0.7 mg/dL (0.5-0.9); ESTIMATED GFR > 60; GLUCOSE 173 mg/dL (70-104); POTASSIUM 4.3 mmol/L (3.5-5.1); SODIUM 131 mmol/L (136-145); TCO2 26 mmol/L (25-35)
[2018-04-15] MEDS: SAMSCA PO SCH (10:38)
[2018-04-15] MEDS: GEODON PO SCH (10:39)
[2018-04-15] MEDS: NAMENDA PO SCH ×2 (10:39→22:00)
[2018-04-15] MEDS: SODIUM CHLORIDE PO SCH ×2 (10:39→22:00)
[2018-04-15] MEDS: FOLIC ACID PO SCH (10:39)
[2018-04-15] MEDS: NICODERM PATCH TD SCH ×2 (10:40→10:45)
[2018-04-15] MEDS: MAG-OX PO SCH ×2 (10:40→22:00)
[2018-04-15] MEDS: ARICEPT PO SCH (10:40)
--- NOTE | 2018-04-15 16:03 | PROGRESS NOTE ---
DATE: 04/15/2018 SUBJECTIVE: She has no complaints. She is lying in bed. She is not really answering any questions though she kind of just refuses. OBJECTIVE: Blood pressure 124/55, heart rate 76, respiratory 16, and temperature 97.8 degrees.Cardiovascular: Regular rate and rhythm. Pulmonary: Bilateral breath sounds. Clear to auscultation. GI: Soft, nontender, and nondistended. Bowel sounds are positive. LABORATORY DATA: Her sodium is at 131. She seems to be doing okay. PROBLEM LIST: 1. 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 We will continue Samsca. She seems to be doing okay on that. 2. Alzheimer's dementia with behavioral difficulties. [facility] has re- evaluated her, and feels like she is stable to go back to her long-term care facility. She does not need further [facility] psych evaluation. I think there may be monitoring her at the facility. DISPOSITION: We will therefore continue her current regimens. I would recommend a course of Samsca just to see if perhaps that can keep her sodium level stabilized enough that she could be there alf. cc: Adan Scott MD
[2018-04-15] MEDS: MELATONIN PO SCH (22:00)
[2018-04-16] MEDS: PRILOSEC PO SCH (06:50)
[2018-04-16 06:57] LABS: AGAP 9; BUN 15 mg/dL (8-22); CALCIUM 9.2 mg/dL (8.8-10.2); CHLORIDE 96 mmol/L (98-107); COSMO 268; CREATININE 0.7 mg/dL (0.5-0.9); ESTIMATED GFR > 60; GLUCOSE 120 mg/dL (70-104); POTASSIUM 4.2 mmol/L (3.5-5.1); SODIUM 133 mmol/L (136-145); TCO2 28 mmol/L (25-35)
[2018-04-16] MEDS: SODIUM CHLORIDE PO SCH ×2 (08:20→22:20)
[2018-04-16] MEDS: FOLIC ACID PO SCH (08:20)
[2018-04-16] MEDS: SAMSCA PO SCH (08:20)
[2018-04-16] MEDS: MAG-OX PO SCH ×2 (08:20→22:19)
[2018-04-16] MEDS: ARICEPT PO SCH (08:20)
[2018-04-16] MEDS: NAMENDA PO SCH ×2 (08:20→22:20)
[2018-04-16] MEDS: GEODON PO SCH (08:21)
[2018-04-16] MEDS: NICODERM PATCH TD SCH (08:22)
--- NOTE | 2018-04-16 21:09 | PROGRESS NOTE ---
DATE: 04/16/2018 SUBJECTIVE: Patient has no focal complaints. OBJECTIVE: Blood pressure 129/54, heart rate of 88, respiratory 16, temperature 98.1 degrees, 96% on room air.Cardiovascular: Regular rate and rhythm. Pulmonary: Bilateral breath sounds. Clear to auscultation. GI: Soft, nontender, nondistended. Bowel sounds are positive. LABORATORY DATA: White count is 6, hemoglobin and hematocrit 10 and 32, platelets 503,000. PROBLEM LIST: 1. Hyponatremia, syndrome of inappropriate antidiuretic hormone. Her sodium is stable on her current Samsca. She is also on sodium chloride. She seems well. 2. Dementia is stable. Continue her current medications. 3. Disposition: [facility] will not accept her back and her regular correction will not accept except her back because of again lack of guardianship. We are not sure exactly, she is unable to take care of herself and family is not willing to participate in her guardianship, so she is also a [facility] case and we are going to see how things look long-term for her as well. cc: Adan Scott MD
[2018-04-16] MEDS: MELATONIN PO SCH (22:21)
[2018-04-17] MEDS: PRILOSEC PO SCH (06:45)
[2018-04-17 06:49] LABS: AGAP 8; BUN 13 mg/dL (8-22); CALCIUM 9.5 mg/dL (8.8-10.2); CHLORIDE 96 mmol/L (98-107); COSMO 267; CREATININE 0.7 mg/dL (0.5-0.9); ESTIMATED GFR > 60; GLUCOSE 110 mg/dL (70-104); POTASSIUM 4.8 mmol/L (3.5-5.1); SODIUM 133 mmol/L (136-145); TCO2 29 mmol/L (25-35)
[2018-04-17] MEDS: NAMENDA PO SCH ×2 (09:25→23:55)
[2018-04-17] MEDS: SODIUM CHLORIDE PO SCH ×2 (09:25→23:55)
[2018-04-17] MEDS: GEODON PO SCH (09:25)
[2018-04-17] MEDS: ARICEPT PO SCH (09:25)
[2018-04-17] MEDS: FOLIC ACID PO SCH (09:25)
[2018-04-17] MEDS: MAG-OX PO SCH ×2 (09:25→23:54)
[2018-04-17] MEDS: SAMSCA PO SCH (09:25)
[2018-04-17] MEDS: NICODERM PATCH TD SCH (09:26)
--- NOTE | 2018-04-17 23:40 | PROGRESS NOTE ---
DATE: 04/17/2018 SUBJECTIVE: Patient has no major complaints. OBJECTIVE: Blood pressure 119/63, heart rate of 76, respiratory rate 18, temperature 97.7 degrees, 100% on room air.Cardiovascular: Regular rate and rhythm. Pulmonary: Bilateral breath sounds, clear to auscultation. GI: Soft, nontender, nondistended. Bowel sounds are positive. Sodium is 133. PROBLEM LIST: 1. Hyponatremia presumably due to syndrome of inappropriate antidiuretic hormone secretion. She seems stable on Samsca, sodium chloride. 2. Dementia appears to be overall stable. 3. Disposition. She has no real long-term disposition. Will kind of see how she is doing. She cannot take care of herself. She does not have guardianship. R is involved so we are looking at guardianship care for her and we will see how she does. cc: Adan Scott MD
[2018-04-17] MEDS: MELATONIN PO SCH (23:55)
[2018-04-18] MEDS: PRILOSEC PO SCH (06:36)
[2018-04-18 07:23] LABS: AGAP 8; BUN 12 mg/dL (8-22); CALCIUM 9.9 mg/dL (8.8-10.2); CHLORIDE 98 mmol/L (98-107); COSMO 273; CREATININE 0.7 mg/dL (0.5-0.9); ESTIMATED GFR > 60; GLUCOSE 118 mg/dL (70-104); POTASSIUM 4.6 mmol/L (3.5-5.1); SODIUM 136 mmol/L (136-145); TCO2 30 mmol/L (25-35)
[2018-04-18] MEDS: GEODON PO SCH (09:48)
[2018-04-18] MEDS: MAG-OX PO SCH ×2 (09:48→20:31)
[2018-04-18] MEDS: ARICEPT PO SCH (09:48)
[2018-04-18] MEDS: NAMENDA PO SCH ×2 (09:48→20:31)
[2018-04-18] MEDS: FOLIC ACID PO SCH (09:48)
[2018-04-18] MEDS: NICODERM PATCH TD SCH (09:49)
[2018-04-18] MEDS: SODIUM CHLORIDE PO SCH ×2 (09:58→20:31)
--- NOTE | 2018-04-18 17:21 | PROGRESS NOTE ---
DATE: 04/18/2018 SUBJECTIVE: The patient is sitting up in bed. She is pleasant. No major complaints. OBJECTIVE: Vital signs: Blood pressure is 120/63, heart rate is 79, respiratory rate 18, temperature 97.3 degrees, 99% on room air. Cardiovascular: Irregular rate and rhythm. Pulmonary: Bilateral breath sounds. Clear to auscultation. Gastrointestinal: Soft, nontender, nondistended. Bowel sounds are positive. DIAGNOSTIC STUDIES: Her sodium is up to 136. Rest of her numbers look good. PROBLEM LIST: 1. Hyponatremia. That seems to be stabilizing. I have taken her off of Samsca due to the cost. We will kind of monitor her off Samsca. She seems to be doing okay on sodium chloride and fluid restriction. We may not need that long-term, although we have set up outpatient coverage if it is required. 2. Dementia. Appears to be stable on current medications. 3. Diabetes. Also stable on current medications. DISPOSITION: She is a [facility] case, so like her neighbor, we are waiting on placement, but I think there will be too much issue with that because it looks like placement will be an option in the next several weeks, potentially. We will continue to follow closely. cc: Adan Scott MD
[2018-04-18] MEDS: MELATONIN PO SCH (20:31)
[2018-04-19] MEDS: PRILOSEC PO SCH (06:37)
[2018-04-19 07:27] LABS: AGAP 9; BUN 14 mg/dL (8-22); CALCIUM 9.3 mg/dL (8.8-10.2); CHLORIDE 98 mmol/L (98-107); COSMO 270; CREATININE 0.7 mg/dL (0.5-0.9); ESTIMATED GFR > 60; GLUCOSE 118 mg/dL (70-104); POTASSIUM 4.3 mmol/L (3.5-5.1); SODIUM 134 mmol/L (136-145); TCO2 27 mmol/L (25-35)
[2018-04-19] MEDS: ARICEPT PO SCH (08:02)
[2018-04-19] MEDS: GEODON PO SCH (08:02)
[2018-04-19] MEDS: GLUCOPHAGE PO SCH (08:03)
[2018-04-19] MEDS: NAMENDA PO SCH ×2 (08:03→20:16)
[2018-04-19] MEDS: FOLIC ACID PO SCH (08:03)
[2018-04-19] MEDS: NICODERM PATCH TD SCH (08:03)
[2018-04-19] MEDS: SODIUM CHLORIDE PO SCH ×2 (08:03→20:16)
[2018-04-19] MEDS: MAG-OX PO SCH ×2 (08:03→20:15)
[2018-04-19] MEDS: MELATONIN PO SCH (20:16)
--- NOTE | 2018-04-19 22:31 | PROGRESS NOTE ---
DATE: 04/19/2018 SUBJECTIVE: Patient herself is sitting up in the bed she is pleasant. She has no complaints. PHYSICAL: Temperature 98, pulse 80, respiratory 18, BP 140/79.General: Patient is no current respiratory distress awake. HEENT: Normocephalic Neck: Supple. CV: Regular rate. Chest: Clear nonlabored, no crackles. Abdomen: Soft, nondistended. Extremities: Moves all extremities. ASSESSMENT: 1. Hyponatremia, sodium is better but still low 134 . 2. Dementia. 3. Diabetes. PLAN: As noted previously patient will be a [facility] placement issue. They were involved and we will continue to treat her symptomatically until their issues are resolved. cc: Umair Underwood MD
[2018-04-20] MEDS: PRILOSEC PO SCH ×2 (05:57→06:10)
[2018-04-20 06:23] LABS: AGAP 9; BUN 15 mg/dL (8-22); CALCIUM 9.5 mg/dL (8.8-10.2); CHLORIDE 98 mmol/L (98-107); COSMO 271; CREATININE 0.7 mg/dL (0.5-0.9); ESTIMATED GFR > 60; GLUCOSE 130 mg/dL (70-104); POTASSIUM 4.1 mmol/L (3.5-5.1); SODIUM 134 mmol/L (136-145); TCO2 27 mmol/L (25-35)
[2018-04-20] MEDS: NAMENDA PO SCH ×2 (08:36→22:11)
[2018-04-20] MEDS: GLUCOPHAGE PO SCH (08:36)
[2018-04-20] MEDS: MAG-OX PO SCH ×2 (08:36→22:11)
[2018-04-20] MEDS: GEODON PO SCH (08:36)
[2018-04-20] MEDS: SODIUM CHLORIDE PO SCH ×2 (08:37→22:10)
[2018-04-20] MEDS: FOLIC ACID PO SCH (08:37)
[2018-04-20] MEDS: NICODERM PATCH TD SCH (08:37)
[2018-04-20] MEDS: ARICEPT PO SCH (08:37)
[2018-04-20] MEDS: MELATONIN PO SCH (22:10)
--- NOTE | 2018-04-20 22:32 | PROGRESS NOTE ---
DATE: 04/20/2018 SUBJECTIVE: Patient seen, no complaints. PHYSICAL EXAMINATION: Vital Signs: Reviewed. Temperature 97.3 degrees, pulse 85, respiratory 18, BP 150/61. General: Patient is in no distress. Physical exam is unchanged. She is currently lying in the bed. She is in no distress. ASSESSMENT: 1. Hyponatremia, stable. 2. Dementia. 3. Diabetes. PLAN: We will continue to await DHR and placement. Continue symptomatic treatment. cc: Umair Underwood MD
[2018-04-21] MEDS ORDERED: BENADRYL IV PRN (05:54)
[2018-04-21] MEDS ORDERED: HALDOL IV PRN (05:55)
[2018-04-21] MEDS: PRILOSEC PO SCH (06:37)
[2018-04-21] MEDS: MAG-OX PO SCH ×2 (08:50→22:14)
[2018-04-21] MEDS: SODIUM CHLORIDE PO SCH ×2 (08:50→22:14)
[2018-04-21] MEDS: FOLIC ACID PO SCH (08:50)
[2018-04-21] MEDS: GLUCOPHAGE PO SCH (08:50)
[2018-04-21] MEDS: GEODON PO SCH (08:50)
[2018-04-21] MEDS: NAMENDA PO SCH ×2 (08:51→22:14)
[2018-04-21] MEDS: NICODERM PATCH TD SCH (08:54)
[2018-04-21] MEDS: ARICEPT PO SCH (09:09)
[2018-04-21] MEDS: MELATONIN PO SCH (22:14)
--- NOTE | 2018-04-22 00:38 | PROGRESS NOTE ---
DATE: 04/21/2018 SUBJECTIVE: Patient has no new complaints. She is confused, disoriented. Yesterday thought she was blind so she sat with her eyes closed all day. PHYSICAL EXAMINATION: Vital Signs: Temperature 97.3 degrees, pulse 74, respiratory 18, BP 136/74. General: Patient is in no current respiratory distress. She is lying in the bed, refuses to answer questions. HEENT: Normocephalic. Neck: Supple. CARDIOVASCULAR: Regular rate. Chest: Clear. Abdomen: Soft. Extremities: Moves all extremities. ASSESSMENT: 1. Hyponatremia, stable. 2. Dementia. 3. Diabetes. PLAN: We will continue patient the hospital until which time discharge plans can be made through [facility]. cc: Umair Underwood MD
[2018-04-22] MEDS: PRILOSEC PO SCH (06:14)
[2018-04-22 07:06] LABS: AGAP 9; BUN 14 mg/dL (8-22); CALCIUM 9.5 mg/dL (8.8-10.2); CHLORIDE 94 mmol/L (98-107); COSMO 264; CREATININE 0.7 mg/dL (0.5-0.9); ESTIMATED GFR > 60; GLUCOSE 106 mg/dL (70-104); POTASSIUM 4.5 mmol/L (3.5-5.1); SODIUM 131 mmol/L (136-145); TCO2 28 mmol/L (25-35)
[2018-04-22] MEDS: GEODON PO SCH (08:34)
[2018-04-22] MEDS: NICODERM PATCH TD SCH (08:34)
[2018-04-22] MEDS: GLUCOPHAGE PO SCH (08:34)
[2018-04-22] MEDS: MAG-OX PO SCH ×2 (08:34→20:51)
[2018-04-22] MEDS: SODIUM CHLORIDE PO SCH ×2 (08:35→20:50)
[2018-04-22] MEDS: ARICEPT PO SCH (08:35)
[2018-04-22] MEDS: NAMENDA PO SCH ×2 (08:35→20:50)
[2018-04-22] MEDS: FOLIC ACID PO SCH (08:35)
[2018-04-22] MEDS: MELATONIN PO SCH (20:50)
--- NOTE | 2018-04-23 00:17 | PROGRESS NOTE ---
DATE: 04/22/2018 SUBJECTIVE: Patient has no new complaints today. PHYSICAL EXAMINATION: Vital Signs: Temperature 97.3 degrees, pulse 60, respiratory 16, BP 116/56. General: Patient is in no current distress. HEENT: Normocephalic. Neck: Supple. Cardiovascular: Regular rate. Chest: Clear. Abdomen: Soft. Extremities: Moves all extremities. ASSESSMENT: 1. Hyponatremia. Sodium is stable at 134. 2. Dementia. 3. Diabetes. PLAN: The patient is in the hospital currently and will remain so until [facility] suitable discharge plans. We will continue to follow. cc: Umair Underwood MD MTDD
[2018-04-23] MEDS: PRILOSEC PO SCH (06:11)
[2018-04-23 06:28] LABS: AGAP 8; BUN 12 mg/dL (8-22); CALCIUM 9.1 mg/dL (8.8-10.2); CHLORIDE 95 mmol/L (98-107); COSMO 257; CREATININE 0.6 mg/dL (0.5-0.9); ESTIMATED GFR > 60; GLUCOSE 106 mg/dL (70-104); POTASSIUM 4.3 mmol/L (3.5-5.1); SODIUM 128 mmol/L (136-145); TCO2 26 mmol/L (25-35)
[2018-04-23] MEDS: GEODON PO SCH ×2 (07:55→19:38)
[2018-04-23] MEDS: MAG-OX PO SCH ×3 (07:55→20:47)
[2018-04-23] MEDS: SODIUM CHLORIDE PO SCH ×3 (07:55→20:47)
[2018-04-23] MEDS: FOLIC ACID PO SCH ×2 (07:56→19:38)
[2018-04-23] MEDS: GLUCOPHAGE PO SCH (07:56)
[2018-04-23] MEDS: ARICEPT PO SCH ×2 (07:56→19:37)
[2018-04-23] MEDS: NAMENDA PO SCH ×3 (07:57→20:47)
[2018-04-23] MEDS: NICODERM PATCH TD SCH (19:38)
[2018-04-23] MEDS: MELATONIN PO SCH (20:47)
--- NOTE | 2018-04-24 02:57 | PROGRESS NOTE ---
DATE: 04/23/2018 SUBJECTIVE: The patient has no new complaints. PHYSICAL EXAMINATION: Vital Signs: Temperature 97, pulse 60, respiratory rate 16, BP 116/56. General: The patient is in no current distress. HEENT: Normocephalic. Neck: Supple. No JVD. Cardiovascular: Regular rate. Chest: Clear. Abdomen: Soft. Extremities: Moves all extremities. ASSESSMENT: 1. Hyponatremia, resolved. 2. Dementia. 3. Diabetes. PLAN: We will continue the patient in the hospital. We are currently awaiting placement. We will treat symptomatically. Further orders as needed. cc: Umair Underwood MD
[2018-04-24] MEDS: PRILOSEC PO SCH (06:39)
[2018-04-24] MEDS: FOLIC ACID PO SCH (09:34)
[2018-04-24] MEDS: ARICEPT PO SCH (09:34)
[2018-04-24] MEDS: GEODON PO SCH (09:34)
[2018-04-24] MEDS: MAG-OX PO SCH ×2 (09:34→21:46)
[2018-04-24] MEDS: GLUCOPHAGE PO SCH (09:34)
[2018-04-24] MEDS: NICODERM PATCH TD SCH (09:35)
[2018-04-24] MEDS: SODIUM CHLORIDE PO SCH ×2 (09:35→21:46)
[2018-04-24] MEDS: NAMENDA PO SCH ×2 (09:37→21:46)
[2018-04-24] MEDS: MELATONIN PO SCH (21:46)
--- NOTE | 2018-04-25 00:17 | PROGRESS NOTE ---
DATE: 04/24/2018 SUBJECTIVE: Patient has no new complaints. She is noted to ambulate with assistance. PHYSICAL EXAMINATION: Vital Signs: Temperature 97.3 degrees, pulse 70, respiratory 20, BP 122/66. General: Patient is awake, alert. She is in no distress. HEENT: Normocephalic. Neck: Supple. Cardiovascular: Regular rate. Chest: Clear. Abdomen: Soft. Extremities: Moves all extremities. ASSESSMENT: 1. Hyponatremia, stable. 2. Dementia, stable. 3. Diabetes. PLAN: We will continue patient in the hospital. Continue symptomatic care. Continue to await transition to long-term care. cc: Umair Underwood MD
[2018-04-25] MEDS: BLISTEX MEDICATED BERRY LIP BALM TOP PRN (02:29)
[2018-04-25] MEDS: ATIVAN IM PRN ×2 (02:35→20:53)
[2018-04-25 05:48] LABS: MCH 31.1 PG (27-31); MCHC 33.3 g/dL (33-37); MCV 93.2 FL (81-99); MPV 10.3 FL (7.4-10.4); RBC 3.54 XMIL (4.2-5.4); RDW 13.1 % (11.5-14.5); WBC 5.99 X1000 (4.8-10.8)
[2018-04-25 06:24] LABS: AGAP 10; ALBUMIN 3.6 g/dL (3.5-5.0); ALKALINE PHOSPHATASE 93 U/L (32-104); BUN 12 mg/dL (8-22); CALCIUM 9.3 mg/dL (8.8-10.2); CHLORIDE 96 mmol/L (98-107); COSMO 268; CREATININE 0.7 mg/dL (0.5-0.9); ESTIMATED GFR > 60; GLUCOSE 130 mg/dL (70-104); GOT 17 U/L (10-30); GPT 10 U/L (10-36); MAGNESIUM 2.1 mg/dL (1.5-2.7); POTASSIUM 4.3 mmol/L (3.5-5.1); SODIUM 133 mmol/L (136-145); TCO2 27 mmol/L (25-35); TOTAL PROTEIN 6.4 g/dL (6.3-8.3)
[2018-04-25] MEDS: PRILOSEC PO SCH (06:56)
[2018-04-25] MEDS: SODIUM CHLORIDE PO SCH ×2 (09:46→21:44)
[2018-04-25] MEDS: ARICEPT PO SCH (09:46)
[2018-04-25] MEDS: NAMENDA PO SCH ×2 (09:47→20:53)
[2018-04-25] MEDS: GLUCOPHAGE PO SCH (09:47)
[2018-04-25] MEDS: GEODON PO SCH (09:47)
[2018-04-25] MEDS: NICODERM PATCH TD SCH (09:47)
[2018-04-25] MEDS: MAG-OX PO SCH ×2 (09:47→20:53)
[2018-04-25] MEDS: FOLIC ACID PO SCH (09:47)
--- NOTE | 2018-04-25 19:17 | PROGRESS NOTE ---
DATE: 04/25/2018 Patient continues to be confused. Thankfully she is no longer blind. However she continues to walk out of her room and get lost. PHYSICAL: Temperature 97.2, pulse 72, respiratory 20, BP 147/58.General: Patient is awake, alert, she is in no physical or respiratory distress. HEENT: Normocephalic. Neck: Supple. CV: Regular rate. Chest: Clear. Abdomen: Soft. ASSESSMENT: 1. Dementia. The patient goes through periods where she thinks she is blind and states she is unable find her food. She has times where she refused to get out of bed and again times where she refuses to get back in bed. We will continue comfort measures and will follow. 2. Adult failure to thrive. Patient is incapable of caring for herself at home. Will continue to await [facility] assistance in transitioning to long-term care. cc: Umair Underwood MD
[2018-04-25] MEDS: MELATONIN PO SCH (20:53)
[2018-04-26] MEDS: PRILOSEC PO SCH (06:36)
[2018-04-26] MEDS: SODIUM CHLORIDE PO SCH ×2 (08:34→21:02)
[2018-04-26] MEDS: FOLIC ACID PO SCH (08:35)
[2018-04-26] MEDS: GLUCOPHAGE PO SCH (08:35)
[2018-04-26] MEDS: ARICEPT PO SCH (08:35)
[2018-04-26] MEDS: MAG-OX PO SCH ×2 (08:35→21:01)
[2018-04-26] MEDS: NAMENDA PO SCH ×2 (08:35→21:02)
[2018-04-26] MEDS: NICODERM PATCH TD SCH (08:35)
[2018-04-26] MEDS: GEODON PO SCH (08:35)
--- NOTE | 2018-04-26 18:15 | PROGRESS NOTE ---
DATE: 04/26/2018 SUBJECTIVE: Patient has no major complaints. OBJECTIVE: Vital signs: Blood pressure is stable 148/61, heart rate of 81, respiratory rate 18, temperature 97.6 degrees. Cardiovascular: Regular rate and rhythm. Pulmonary: Bilateral breath sounds clear to auscultation. Gastrointestinal: Soft, nontender, nondistended. Bowel sounds are positive. Extremity: No clubbing or cyanosis. Lymphatic: No peripheral edema. Neurological: Nonfocal. DIAGNOSTIC STUDIES: She has a sodium yesterday of 133. I think we can probably check that intermittently. PROBLEM LIST: 1. Hyponatremia, presumably due to syndrome of inappropriate antidiuretic hormone secretion (SIADH). She is stable. I think she is on salt tablets. We will continue to follow. 2. Dementia. She still has intermittent confusion, intermittent symptomatology. She is on Aricept, Namenda, and Geodon at 40 daily. I am going to bump up her Namenda to 10 b.i.d. DISPOSITION: She is a DHR case. We are waiting on custodianship/guardianship to decide about long-term placement. cc: Adan Scott MD
[2018-04-26] MEDS: ATIVAN IM PRN (21:01)
[2018-04-26] MEDS: MELATONIN PO SCH (21:02)
[2018-04-27] MEDS: PRILOSEC PO SCH (06:31)
[2018-04-27] MEDS: NICODERM PATCH TD SCH ×2 (10:50→10:53)
[2018-04-27] MEDS: GEODON PO SCH (10:50)
[2018-04-27] MEDS: MAG-OX PO SCH ×2 (10:50→21:45)
[2018-04-27] MEDS: FOLIC ACID PO SCH (10:50)
[2018-04-27] MEDS: ARICEPT PO SCH (10:50)
[2018-04-27] MEDS: SODIUM CHLORIDE PO SCH ×2 (10:50→21:44)
[2018-04-27] MEDS: NAMENDA PO SCH ×2 (10:51→21:44)
[2018-04-27] MEDS: GLUCOPHAGE PO SCH (10:51)
--- NOTE | 2018-04-27 15:47 | PROGRESS NOTE ---
DATE: 04/27/2018 SUBJECTIVE: Patient has no major complaints. OBJECTIVE: Vital signs: Blood pressure is 142/64, heart rate of 76, respiratory rate 18, temperature 97.5 degrees, 99% on room air. Cardiovascular: Regular rate and rhythm. Pulmonary: Bilateral breath sounds. Clear to auscultation. GI: Soft, nontender, nondistended. Bowel sounds are positive. LABORATORY: no new labs ASSESSMENT: 1. Hyponatremia, syndrome of inappropriate antidiuretic hormone. The patient is stable on salt tablets/fluid restriction 2. Dementia. She is on Aricept, Namenda, and Geodon. DISPOSITION: Waiting for long term and R. DISCHARGE CONDITION: Pending guardianship. cc: Adan Scott MD MTDD
[2018-04-27] MEDS ORDERED: HALDOL IM PRN (20:42)
[2018-04-27] MEDS: DESYREL PO SCH (21:44)
[2018-04-27] MEDS: ATIVAN PO PRN (21:44)
[2018-04-27] MEDS: MELATONIN PO SCH (21:45)
[2018-04-28] MEDS: PRILOSEC PO SCH (06:40)
[2018-04-28] MEDS: SODIUM CHLORIDE PO SCH ×2 (11:19→21:20)
[2018-04-28] MEDS: GLUCOPHAGE PO SCH (11:19)
[2018-04-28] MEDS: GEODON PO SCH (11:19)
[2018-04-28] MEDS: ARICEPT PO SCH (11:19)
[2018-04-28] MEDS: NAMENDA PO SCH ×2 (11:19→21:19)
[2018-04-28] MEDS: MAG-OX PO SCH ×2 (11:19→21:19)
[2018-04-28] MEDS: NICODERM PATCH TD SCH (11:20)
[2018-04-28] MEDS: FOLIC ACID PO SCH (11:20)
--- NOTE | 2018-04-28 18:16 | PROGRESS NOTE ---
DATE: 04/28/2018 SUBJECTIVE: Patient has no major complaints. OBJECTIVE: Vital Signs: Blood pressure 111/65, heart rate of 85, respiratory rate 18, temperature 97.5 degrees and 100% on room air. Cardiovascular: Regular rate and rhythm. Pulmonary: Bilateral breath sounds. Clear to auscultation. GI: Soft, nontender, and nondistended. Bowel sounds are positive. IMPRESSION AND PLAN: Orientation questions, she said it was 2019. She said she was in [place]. With prompting, she said [facility]. She said she is here because she is sick so her level of cognition I guess varies. Now, she is on Geodon. She is on Namenda. She is on Aricept with known Alzheimer's type dementia and reported schizophrenia. In any case, the patient though is not really able to take care of herself. She is not able to manage despite being oriented only. She is able to manage her affairs, and she will need permanent placement. We are looking at guardianship and going through that process. cc: Adan Scott MD
[2018-04-28] MEDS: DESYREL PO SCH (21:19)
[2018-04-28] MEDS: ATIVAN PO PRN (21:19)
[2018-04-28] MEDS: MELATONIN PO SCH (21:20)
[2018-04-29 06:30] LABS: AGAP 9; BUN 14 mg/dL (8-22); CALCIUM 9.1 mg/dL (8.8-10.2); CHLORIDE 97 mmol/L (98-107); COSMO 267; CREATININE 0.7 mg/dL (0.5-0.9); ESTIMATED GFR > 60; GLUCOSE 110 mg/dL (70-104); POTASSIUM 4.7 mmol/L (3.5-5.1); SODIUM 133 mmol/L (136-145); TCO2 27 mmol/L (25-35)
[2018-04-29] MEDS: PRILOSEC PO SCH (07:24)
[2018-04-29] MEDS: GLUCOPHAGE PO SCH (09:59)
[2018-04-29] MEDS: GEODON PO SCH (10:02)
[2018-04-29] MEDS: ARICEPT PO SCH (10:03)
[2018-04-29] MEDS: FOLIC ACID PO SCH (10:03)
[2018-04-29] MEDS: SODIUM CHLORIDE PO SCH ×2 (10:04→22:24)
[2018-04-29] MEDS: NICODERM PATCH TD SCH (10:04)
[2018-04-29] MEDS: NAMENDA PO SCH ×2 (10:05→22:25)
[2018-04-29] MEDS: MAG-OX PO SCH ×2 (10:12→22:24)
--- NOTE | 2018-04-29 12:37 | PROGRESS NOTE ---
DATE: 04/29/2018 SUBJECTIVE: This morning Ms. Rose refers to be doing fairly okay. Does not have any hallucinations OBJECTIVE: General: Ms. Rose is a 77-year-old female. She is in bed. No distress. HEENT: Mucosa is pink and moist. Anicteric. Acyanotic. Neck: Supple. Chest : Clear to auscultation. There were no crepitations, no rhonchi. Cardiovascular: Regular rate and rhythm. There are no murmurs, no rubs, no gallops. Abdomen: Soft. Extremities: No pedal edema. Distal pulses are present. Central nervous system: Patient is awake, alert, oriented to person but disoriented to place and time. The patient also seems to have remarkable memory gaps, and she is very repetitive in combing her hair. CURRENT MEDICATIONS: Include 1. Donepezil 10 mg daily. 2. Folic acid 1 mg daily. 3. Haldol p.r.n. 4. Magnesium 800 b.i.d. 5. Melatonin 5 mg at bedtime. 6. Namenda 10 mg b.i.d. 7. Omeprazole 40 mg daily. 8. Trazodone 25 mg at bedtime. 9. Geodon 40 mg p.o. daily. ASSESSMENT: 1. Severe hyponatremia on presentation, improved. 2. Diabetes mellitus, controlled. 3. History of hypothyroidism, on no medication. 4. Schizophrenia with bipolar disorder. Patient is on medications. 5. Alzheimer dementia. Patient is on medications. Ms. Rose is clinically stable. She definitely does have remarkable advanced dementia and schizophrenia with bipolar disorder. I think she would definitely need some form of nursing supervision and medical care, so she will need to be committed to either a assisted or a place that she can be taken care for. I do not think she will be able to care for herself. cc: Antonio Spence MD MTDD
[2018-04-29] MEDS: MELATONIN PO SCH (22:25)
[2018-04-29] MEDS: DESYREL PO SCH (22:25)
[2018-04-30] MEDS: PRILOSEC PO SCH (06:15)
--- NOTE | 2018-04-30 08:47 | PROGRESS NOTE ---
DATE: 04/30/2018 SUBJECTIVE: The patient denies having any acute issues this morning. OBJECTIVE: Vital Signs: Temperature 97.4 degrees, pulse 66 per minute, respiratory rate 18 per minute, blood pressure 126/63, pulse oximetry 100% on room air. General: The patient is alert and awake. She does not appear to be in any acute distress. Cardiovascular System: First and second heart sounds are audible without any murmurs or gallops. Respiratory System: No respiratory distress noted. Bilateral lung air entry is good without any rales or rhonchi. Gastrointestinal System: Abdomen is benign. DIAGNOSTIC DATA: No new labs have been done. IMPRESSION: 1. Type 2 diabetes mellitus. 2. Dementia. 3. Gastroesophageal reflux disease. PLAN: The patient was initially admitted at the hospital with severe hyponatremia that has resolved. Her diabetes and dementia along with acid reflux symptoms have remained stable. She is basically stuck here because of placement issues. The 7th grade social studies teacher has been trying to find permanent placement, for which we will await. cc: Everardo Tenorio MD
[2018-04-30] MEDS: SODIUM CHLORIDE PO SCH ×2 (09:53→21:40)
[2018-04-30] MEDS: MAG-OX PO SCH ×2 (09:53→21:41)
[2018-04-30] MEDS: ARICEPT PO SCH (09:53)
[2018-04-30] MEDS: FOLIC ACID PO SCH (09:53)
[2018-04-30] MEDS: GEODON PO SCH (09:53)
[2018-04-30] MEDS: NAMENDA PO SCH ×2 (09:53→21:41)
[2018-04-30] MEDS: GLUCOPHAGE PO SCH (09:53)
[2018-04-30] MEDS: NICODERM PATCH TD SCH (09:54)
[2018-04-30] MEDS: MELATONIN PO SCH (21:41)
[2018-04-30] MEDS: DESYREL PO SCH (21:42)
[2018-05-01] MEDS: PRILOSEC PO SCH (06:14)
[2018-05-01] MEDS: FOLIC ACID PO SCH (09:42)
[2018-05-01] MEDS: GEODON PO SCH (09:43)
[2018-05-01] MEDS: MAG-OX PO SCH ×2 (09:43→22:47)
[2018-05-01] MEDS: ARICEPT PO SCH (09:43)
[2018-05-01] MEDS: GLUCOPHAGE PO SCH (09:43)
[2018-05-01] MEDS: NAMENDA PO SCH ×2 (09:44→22:47)
[2018-05-01] MEDS: NICODERM PATCH TD SCH (09:44)
[2018-05-01] MEDS: SODIUM CHLORIDE PO SCH ×2 (09:44→22:47)
--- NOTE | 2018-05-01 11:37 | PROGRESS NOTE ---
DATE: 05/01/2018 SUBJECTIVE: The patient denies having any acute complaints this morning. OBJECTIVE: Vital Signs: Temperature is 97.5 degrees, pulse 65 per minute, respiratory rate 20 per minute, blood pressure 136/56, and pulse ox 100% on room air. General: The patient is awake and alert. She does not appear to be in any acute distress. Cardiovascular System: First and second heart sounds are audible without any murmurs or gallops. Respiratory System: Bilateral lung air entry is good without any rales or rhonchi. Gastrointestinal System: The abdomen is soft and nontender on palpation. Normal bowel sounds are present. DIAGNOSTIC DATA: No new labs have been done. IMPRESSION: 1. Type 2 diabetes mellitus. 2. Dementia. 3. Gastroesophageal reflux disease. PLAN: The patient's overall condition has been stable. She was initially admitted for severe hyponatremia and that resolved after a few days but she is basically here at the hospital since we have been having placement issues. Her diabetes and dementia along with acid reflux symptoms have remained stable. The [employer] has been trying to find permanent placement until which she will remain here at the hospital. cc: Everardo Tenorio MD
[2018-05-01] MEDS: MELATONIN PO SCH (22:47)
[2018-05-01] MEDS: DESYREL PO SCH (22:48)
[2018-05-02] MEDS: PRILOSEC PO SCH (06:15)
[2018-05-02] MEDS: GLUCOPHAGE PO SCH (08:15)
[2018-05-02] MEDS: ARICEPT PO SCH (08:15)
[2018-05-02] MEDS: MAG-OX PO SCH ×2 (08:15→21:51)
[2018-05-02] MEDS: NAMENDA PO SCH ×2 (08:15→21:51)
[2018-05-02] MEDS: FOLIC ACID PO SCH (08:15)
[2018-05-02] MEDS: GEODON PO SCH (08:15)
[2018-05-02] MEDS: SODIUM CHLORIDE PO SCH ×2 (08:15→21:51)
[2018-05-02] MEDS: NICODERM PATCH TD SCH (10:56)
--- NOTE | 2018-05-02 11:36 | PROGRESS NOTE ---
DATE: 05/02/2018 SUBJECTIVE: The patient denies having any acute complaints this morning. OBJECTIVE: Vital Signs: Temperature 97.6 degrees, pulse 81, respiratory rate 18, blood pressure 126/86, pulse oximetry 100% on room air. General: The patient is alert and awake. She does not appear to be in any acute distress. Cardiovascular: First and second heart sounds are audible without any murmurs or gallops. Respiratory: Bilateral lung air entry is good without any rales or rhonchi. Gastrointestinal: Abdomen is benign. IMPRESSION: 1. Type 2 diabetes mellitus. 2. Dementia. 3. Gastroesophageal reflux disease. PLAN: The patient has been in stable condition, and we are going to continue with current medications. She has no acute medical issues at this time, and we are waiting for long-term placement. contact worker lithography is trying to find a solution for permanent placement in a [facility]pc facility. cc: Everardo Tenorio MD
[2018-05-02] MEDS: MELATONIN PO SCH (21:51)
[2018-05-02] MEDS: DESYREL PO SCH (21:51)
[2018-05-03] MEDS ORDERED: CALMOSEPTINE OINTMENT TOP PRN (05:31)
[2018-05-03] MEDS: PRILOSEC PO SCH (06:12)
[2018-05-03] MEDS: NAMENDA PO SCH ×2 (08:10→21:35)
[2018-05-03] MEDS: GEODON PO SCH (08:11)
[2018-05-03] MEDS: GLUCOPHAGE PO SCH (08:11)
[2018-05-03] MEDS: SODIUM CHLORIDE PO SCH ×2 (08:11→21:35)
[2018-05-03] MEDS: FOLIC ACID PO SCH (08:11)
[2018-05-03] MEDS: ARICEPT PO SCH (08:11)
[2018-05-03] MEDS: MAG-OX PO SCH ×2 (08:14→21:35)
[2018-05-03] MEDS: NICODERM PATCH TD SCH (08:14)
[2018-05-03] MEDS: DESYREL PO SCH (21:35)
[2018-05-03] MEDS: MELATONIN PO SCH (21:35)
--- NOTE | 2018-05-03 22:59 | PROGRESS NOTE ---
DATE: 05/03/2018 SUBJECTIVE: The patient has no complaints. PHYSICAL EXAMINATION: Vital Signs: Reviewed. General: She is awake, alert. She is in no current respiratory distress. Physical exam is unchanged. ASSESSMENT: 1. Type 1 diabetes. 2. Dementia. 3. Social neglect. 4. Reflux. PLAN: We will continue patient in the hospital until which time discharge plans can be arranged. cc: Umair Underwood MD
[2018-05-04] MEDS: PRILOSEC PO SCH (06:26)
[2018-05-04] MEDS: NAMENDA PO SCH ×2 (08:53→21:04)
[2018-05-04] MEDS: FOLIC ACID PO SCH (08:53)
[2018-05-04] MEDS: NICODERM PATCH TD SCH ×2 (08:53→09:01)
[2018-05-04] MEDS: SODIUM CHLORIDE PO SCH ×2 (08:53→21:04)
[2018-05-04] MEDS: GLUCOPHAGE PO SCH (08:53)
[2018-05-04] MEDS: ARICEPT PO SCH (08:53)
[2018-05-04] MEDS: GEODON PO SCH (08:53)
[2018-05-04] MEDS: MAG-OX PO SCH ×3 (08:53→21:07)
[2018-05-04] MEDS: MELATONIN PO SCH (21:04)
[2018-05-04] MEDS: DESYREL PO SCH (21:04)
--- NOTE | 2018-05-04 23:32 | PROGRESS NOTE ---
DATE: 05/04/2018 SUBJECTIVE: Patient has no complaints. OBJECTIVE/PHYSICAL EXAM: Vital Signs: Reviewed and stable. Physical exam is unchanged. PLAN: We will continue patient in the hospital, continue controlling diabetes until which time long-term placement can be arranged. cc: Umair Underwood MD
[2018-05-05] MEDS: PRILOSEC PO SCH (06:12)
[2018-05-05] MEDS: GEODON PO SCH (10:29)
[2018-05-05] MEDS: SODIUM CHLORIDE PO SCH ×2 (10:29→22:19)
[2018-05-05] MEDS: NAMENDA PO SCH ×2 (10:30→22:20)
[2018-05-05] MEDS: MAG-OX PO SCH ×2 (10:30→22:20)
[2018-05-05] MEDS: ARICEPT PO SCH (10:30)
[2018-05-05] MEDS: NICODERM PATCH TD SCH (10:31)
[2018-05-05] MEDS: GLUCOPHAGE PO SCH (10:31)
[2018-05-05] MEDS: FOLIC ACID PO SCH (10:31)
--- NOTE | 2018-05-05 22:04 | PROGRESS NOTE ---
DATE: 05/05/2018 SUBJECTIVE: The patient overall has no new complaints. OBJECTIVE: Vital Signs: Reviewed and stable. General: She is awake, alert. She is in no distress. ASSESSMENT: 1. Type 2 diabetes. 2. Dementia. 3. Gastric reflux. PLAN: We will continue the patient in the hospital until which time placement can be found. cc: Umair Underwood MD
[2018-05-05] MEDS: MELATONIN PO SCH (22:19)
[2018-05-05] MEDS: DESYREL PO SCH (22:19)
[2018-05-06] MEDS: PRILOSEC PO SCH (06:04)
[2018-05-06] MEDS: ARICEPT PO SCH (10:42)
[2018-05-06] MEDS: SODIUM CHLORIDE PO SCH ×2 (10:43→21:00)
[2018-05-06] MEDS: MAG-OX PO SCH ×2 (10:43→21:03)
[2018-05-06] MEDS: FOLIC ACID PO SCH (10:43)
[2018-05-06] MEDS: GLUCOPHAGE PO SCH (10:44)
[2018-05-06] MEDS: NICODERM PATCH TD SCH ×2 (10:44→10:45)
[2018-05-06] MEDS: NAMENDA PO SCH ×2 (10:44→21:01)
[2018-05-06] MEDS: GEODON PO SCH (10:44)
[2018-05-06] MEDS: DESYREL PO SCH (21:00)
[2018-05-06] MEDS: MELATONIN PO SCH (21:00)
--- NOTE | 2018-05-07 00:15 | PROGRESS NOTE ---
DATE: 05/06/2018 SUBJECTIVE: Patient has no new complaints. PHYSICAL EXAMINATION: Vital Signs: Unchanged. Physical exam is unchanged. PLAN: We will continue patient in the hospital. Continue to control diabetes. Treat her symptomatically until her social situation can be resolved and she can transfer to long-term care. cc: Umair Underwood MD
[2018-05-07] MEDS: PRILOSEC PO SCH (06:48)
[2018-05-07] MEDS: SODIUM CHLORIDE PO SCH ×2 (11:11→20:22)
[2018-05-07] MEDS: FOLIC ACID PO SCH (11:11)
[2018-05-07] MEDS: ARICEPT PO SCH (11:11)
[2018-05-07] MEDS: GEODON PO SCH (11:11)
[2018-05-07] MEDS: MAG-OX PO SCH (11:11)
[2018-05-07] MEDS: GLUCOPHAGE PO SCH (11:11)
[2018-05-07] MEDS: NAMENDA PO SCH ×2 (11:11→20:22)
[2018-05-07] MEDS: NICODERM PATCH TD SCH (11:12)
[2018-05-07] MEDS: MELATONIN PO SCH (20:22)
[2018-05-07] MEDS: DESYREL PO SCH (20:23)
--- NOTE | 2018-05-07 22:28 | PROGRESS NOTE ---
DATE: 05/07/2018 SUBJECTIVE: Patient seen and examined, no current complaints. OBJECTIVE/PHYSICAL EXAM: Unchanged. Vital signs stable. DIAGNOSTIC DATA: . ASSESSMENT AND PLAN: Patient will continue in the hospital until which time final discharge planning can be arranged. cc: Umair Underwood MD
[2018-05-08] MEDS: MAG-OX PO SCH ×2 (03:43→09:04)
[2018-05-08] MEDS: PRILOSEC PO SCH (06:40)
[2018-05-08] MEDS: ARICEPT PO SCH (09:03)
[2018-05-08] MEDS: GLUCOPHAGE PO SCH (09:03)
[2018-05-08] MEDS: SODIUM CHLORIDE PO SCH (09:03)
[2018-05-08] MEDS: NICODERM PATCH TD SCH (09:03)
[2018-05-08] MEDS: NAMENDA PO SCH ×2 (09:04→21:35)
[2018-05-08] MEDS: GEODON PO SCH (09:04)
[2018-05-08] MEDS: FOLIC ACID PO SCH (09:04)
--- NOTE | 2018-05-08 14:50 | PROGRESS NOTE ---
DATE: 05/08/2018 SUBJECTIVE: Patient without any new complaints. She is lying flatly in the bed this morning. PHYSICAL EXAMINATION: Vital Signs: Reviewed. She is afebrile. Blood pressure stable at 115/53. Physical Exam: Unchanged from previous days. We will continue comfort care. Continue to follow patient and treat symptomatically as needed. Continue to await the opportunity to transposition to her final residence. cc: Umair Underwood MD
[2018-05-08] MEDS: MELATONIN PO SCH (21:35)
[2018-05-08] MEDS: DESYREL PO SCH (21:35)
[2018-05-09] MEDS: PRILOSEC PO SCH (06:36)
[2018-05-09] MEDS: MAG-OX PO SCH ×3 (06:36→20:46)
[2018-05-09] MEDS: SODIUM CHLORIDE PO SCH ×3 (06:36→20:51)
[2018-05-09 07:07] LABS: HEMATOCRIT 31.9 % (37.0-47.0); HEMOGLOBIN 10.5 g/dL (12.0-16.0); MCH 31.1 PG (27-31); MCHC 32.9 g/dL (33-37); MCV 94.4 FL (81-99); MPV 10.6 FL (7.4-10.4); RBC 3.38 XMIL (4.2-5.4); RDW 12.9 % (11.5-14.5); WBC 5.68 X1000 (4.8-10.8)
[2018-05-09 07:25] LABS: AGAP 9; ALBUMIN 3.5 g/dL (3.5-5.0); ALKALINE PHOSPHATASE 78 U/L (32-104); BUN 16 mg/dL (8-22); CALCIUM 8.9 mg/dL (8.8-10.2); CHLORIDE 96 mmol/L (98-107); COSMO 270; CREATININE 0.7 mg/dL (0.5-0.9); ESTIMATED GFR > 60; GLUCOSE 108 mg/dL (70-104); GOT 16 U/L (10-30); GPT 9 U/L (10-36); POTASSIUM 4.7 mmol/L (3.5-5.1); SODIUM 134 mmol/L (136-145); TCO2 29 mmol/L (25-35); TOTAL PROTEIN 5.6 g/dL (6.3-8.3)
--- NOTE | 2018-05-09 08:16 | PROGRESS NOTE ---
DATE: 05/09/2018 SUBJECTIVE: No new complaints. OBJECTIVE: Vital Signs: Reviewed. Blood pressure is stable at 128/62. Physical exam unchanged. IMPRESSION: 1. Type 2 diabetes. 2. Dementia. 3. Chronic reflux. 4. Poor social situation. PLAN: Will continue the patient in the hospital until which time she can transition to long-term placement. cc: Umair Underwood MD
[2018-05-09] MEDS: GEODON PO SCH (10:14)
[2018-05-09] MEDS: FOLIC ACID PO SCH (10:14)
[2018-05-09] MEDS: GLUCOPHAGE PO SCH (10:14)
[2018-05-09] MEDS: NAMENDA PO SCH ×2 (10:14→20:46)
[2018-05-09] MEDS: ARICEPT PO SCH (10:15)
[2018-05-09] MEDS: NICODERM PATCH TD SCH (10:30)
[2018-05-09] MEDS: MELATONIN PO SCH (20:46)
[2018-05-09] MEDS: DESYREL PO SCH (20:46)
[2018-05-10] MEDS: PRILOSEC PO SCH (06:18)
[2018-05-10] MEDS: NICODERM PATCH TD SCH ×2 (08:51→08:53)
[2018-05-10] MEDS: MAG-OX PO SCH ×2 (08:51→20:49)
[2018-05-10] MEDS: GEODON PO SCH (08:51)
[2018-05-10] MEDS: GLUCOPHAGE PO SCH (08:51)
[2018-05-10] MEDS: FOLIC ACID PO SCH (08:51)
[2018-05-10] MEDS: NAMENDA PO SCH ×2 (08:51→20:49)
[2018-05-10] MEDS: SODIUM CHLORIDE PO SCH ×2 (08:51→20:50)
[2018-05-10] MEDS: ARICEPT PO SCH (08:51)
[2018-05-10] MEDS: MELATONIN PO SCH (20:50)
[2018-05-10] MEDS: DESYREL PO SCH (20:50)
--- NOTE | 2018-05-10 20:53 | PROGRESS NOTE ---
DATE: 04/09/2018 SUBJECTIVE: Patient has no complaints, she is lying in bed. OBJECTIVE: Blood pressure 118/53, heart rate 75, respiratory 16, temperature 98.2 degrees.Cardiovascular: Regular rate, rhythm. Pulmonary: Bilateral breath sounds clear to auscultation. GI: Soft, nontender, nondistended, bowel sounds are positive. LAB DATA: I do not think we have any new data. Sodium is been good 134, sugars have been stable. PROBLEM LIST: 1. Hyponatremia. She seems to be doing better. 2. Type 2 diabetes. Will continue blood sugars and following overall well controlled. 3. Dementia stable. DISPOSITION: Pending clinical status. Dementia is overall controlled. cc: Adan Scott MD
[2018-05-11] MEDS: PRILOSEC PO SCH (06:17)
[2018-05-11] MEDS: ARICEPT PO SCH (08:38)
[2018-05-11] MEDS: GEODON PO SCH (08:38)
[2018-05-11] MEDS: GLUCOPHAGE PO SCH (08:39)
[2018-05-11] MEDS: MAG-OX PO SCH ×2 (08:39→21:57)
[2018-05-11] MEDS: FOLIC ACID PO SCH (08:39)
[2018-05-11] MEDS: SODIUM CHLORIDE PO SCH ×2 (08:39→21:57)
[2018-05-11] MEDS: NAMENDA PO SCH ×2 (08:39→21:57)
--- NOTE | 2018-05-11 18:20 | PROGRESS NOTE ---
DATE: 04/10/2018 SUBJECTIVE: Patient has no major complaints. OBJECTIVE: Vital Signs: Blood pressure 104/56, heart rate 68, respiratory 16, temperature 97.9. Cardiovascular: Regular rate and rhythm. Pulmonary: Bilateral breath sounds. Clear to auscultation. Gastrointestinal: Soft, nontender, nondistended. Bowel sounds are positive. LABORATORY DATA: No major changes. PROBLEM LIST: 1. Alzheimer dementia. Appears to be overall controlled on current medications. 2. Hyponatremia, has also stabilized. 3. Type 2 diabetes. Her blood sugars are controlled on current medications. 4. Disposition: Also, awaiting guardianship and then long-term placement. cc: Adan Scott MD
[2018-05-11] MEDS: MELATONIN PO SCH (21:57)
[2018-05-11] MEDS: DESYREL PO SCH (21:57)
[2018-05-12] MEDS: PRILOSEC PO SCH (06:13)
[2018-05-12 07:27] LABS: AGAP 7; BUN 19 mg/dL (8-22); CALCIUM 8.9 mg/dL (8.8-10.2); CHLORIDE 98 mmol/L (98-107); COSMO 273; CREATININE 0.7 mg/dL (0.5-0.9); ESTIMATED GFR > 60; GLUCOSE 107 mg/dL (70-104); POTASSIUM 5.3 mmol/L (3.5-5.1); SODIUM 135 mmol/L (136-145); TCO2 30 mmol/L (25-35)
[2018-05-12] MEDS: NAMENDA PO SCH ×2 (08:15→22:22)
[2018-05-12] MEDS: MAG-OX PO SCH ×2 (08:15→22:22)
[2018-05-12] MEDS: ARICEPT PO SCH (08:15)
[2018-05-12] MEDS: GEODON PO SCH (08:15)
[2018-05-12] MEDS: GLUCOPHAGE PO SCH (08:15)
[2018-05-12] MEDS: SODIUM CHLORIDE PO SCH ×2 (08:15→22:22)
[2018-05-12] MEDS: FOLIC ACID PO SCH (08:15)
--- NOTE | 2018-05-12 18:37 | PROGRESS NOTE ---
DATE: 05/12/2018 SUBJECTIVE: Patient has no focal complaints. OBJECTIVE: Vital signs: Blood pressure is 116/54, heart rate was 70, respiratory rate 16, temperature 97.9 degrees, 100% on room air. Cardiovascular: Regular rate and rhythm. Pulmonary: Bilateral breath sounds. Clear to auscultation. GI: Soft, nontender, nondistended. Bowel sounds are positive. LABORATORY DATA: Sodium 135. Potassium 5.3. PROBLEM LIST: 1. Alzheimer's dementia. We will continue on her current medications. 2. Hyponatremia. That has also stabilized on fluid restriction. 3. Type 2 diabetes. Will continue her regular medications. 4. She has a mild hyperkalemia, which I do not have a complete explanation for. We will check it again tomorrow. DISPOSITION: Waiting on guardianship which we are in the process of obtaining. cc: Adan Scott MD MTDD
[2018-05-12] MEDS: MELATONIN PO SCH (22:22)
[2018-05-12] MEDS: DESYREL PO SCH (22:22)
[2018-05-13] MEDS: PRILOSEC PO SCH (06:18)
[2018-05-13 07:41] LABS: AGAP 9; BUN 17 mg/dL (8-22); CALCIUM 9.1 mg/dL (8.8-10.2); CHLORIDE 95 mmol/L (98-107); COSMO 270; CREATININE 0.7 mg/dL (0.5-0.9); ESTIMATED GFR > 60; GLUCOSE 107 mg/dL (70-104); POTASSIUM 4.9 mmol/L (3.5-5.1); SODIUM 134 mmol/L (136-145); TCO2 30 mmol/L (25-35)
[2018-05-13] MEDS: NAMENDA PO SCH ×2 (08:38→21:52)
[2018-05-13] MEDS: GEODON PO SCH (08:38)
[2018-05-13] MEDS: SODIUM CHLORIDE PO SCH ×2 (08:38→21:52)
[2018-05-13] MEDS: MAG-OX PO SCH ×2 (08:39→21:52)
[2018-05-13] MEDS: ARICEPT PO SCH (08:39)
[2018-05-13] MEDS: GLUCOPHAGE PO SCH (08:39)
[2018-05-13] MEDS: FOLIC ACID PO SCH (08:39)
--- NOTE | 2018-05-13 17:14 | PROGRESS NOTE ---
DATE: 05/13/2018 SUBJECTIVE: Patient has no major complaints. OBJECTIVE: Vital signs: Blood pressure 122/67, heart rate 75, respiratory rate 16, temperature 97.5 degrees, 100% on room air. Cardiovascular: Regular rate and rhythm. Pulmonary: Bilateral breath sounds clear to auscultation. Gastrointestinal: Soft, nontender, nondistended. Bowel sounds were positive. LABORATORY DATA: Sodium is 134, potassium 4.9. PROBLEM LIST: 1. Alzheimer's dementia. This is fairly well controlled on current medications. 2. Hyponatremia. That is also stabilized. I think she is just on fluid restriction at 1000 a day, and she is on salt tablets which seem to be keeping her stable. 3. Type 2 diabetes. She is on regular medications. DISPOSITION: It is a placement issue. She needs placement, so we are looking at options for her. cc: Adan Scott MD
[2018-05-13] MEDS: MELATONIN PO SCH (21:52)
[2018-05-13] MEDS: DESYREL PO SCH (21:53)
[2018-05-14] MEDS: PRILOSEC PO SCH (06:16)
[2018-05-14] MEDS: MAG-OX PO SCH ×2 (08:56→21:13)
[2018-05-14] MEDS: ARICEPT PO SCH (08:56)
[2018-05-14] MEDS: GEODON PO SCH (08:56)
[2018-05-14] MEDS: FOLIC ACID PO SCH (08:56)
[2018-05-14] MEDS: SODIUM CHLORIDE PO SCH ×2 (08:56→21:13)
[2018-05-14] MEDS: GLUCOPHAGE PO SCH (08:56)
[2018-05-14] MEDS: NAMENDA PO SCH ×2 (08:56→21:13)
--- NOTE | 2018-05-14 18:53 | PROGRESS NOTE ---
DATE: 05/14/2018 SUBJECTIVE: The patient has no major complaints. OBJECTIVE: Blood pressure 120/53, heart rate 70, respiratory 18, temperature 98 degrees.Cardiovascular: Regular rate and rhythm. Pulmonary: Bilateral breath sounds. Clear to auscultation. GI: Soft, nontender, nondistended. Bowel sounds are positive. LABORATORY DATA: No new data today. Blood sugar 128. Overall she seems to be doing better. PROBLEM LIST: 1. We will continue to follow closely. Hyponatremia is stable on current medications. Check that intermittently. 2. Dementia. She is controlled on her current medicines. 3. Type 2 diabetes, also stable. DISPOSITION: Pending her clinical status and awaiting guardianship and permanent placement. cc: Adan Scott MD
[2018-05-14] MEDS: MELATONIN PO SCH (21:13)
[2018-05-14] MEDS: DESYREL PO SCH (21:13)
[2018-05-15] MEDS: PRILOSEC PO SCH (06:14)
[2018-05-15] MEDS: ARICEPT PO SCH (09:02)
[2018-05-15] MEDS: GEODON PO SCH (09:02)
[2018-05-15] MEDS: GLUCOPHAGE PO SCH (09:02)
[2018-05-15] MEDS: NAMENDA PO SCH ×2 (09:02→21:25)
[2018-05-15] MEDS: MAG-OX PO SCH ×2 (09:02→21:26)
[2018-05-15] MEDS: FOLIC ACID PO SCH (09:02)
[2018-05-15] MEDS: SODIUM CHLORIDE PO SCH ×2 (09:02→21:26)
--- NOTE | 2018-05-15 19:46 | PROGRESS NOTE ---
DATE: 05/15/2018 SUBJECTIVE: Patient has no focal complaints, she is sitting up in bed. OBJECTIVE: Blood pressure is 104/52, heart rate 68, respiratory rate of 18, temperature 97.4 degrees.Cardiovascular: Regular rate and rhythm . Pulmonary: Bilateral breath sounds. Clear to auscultation. GI: Was soft, nontender, nondistended. Bowel sounds are positive. LABORATORY DATA: No new data. She appears to be pretty stable. I am going to check her basic tomorrow because just to make sure that is Kos[place] before we plan for discharge early next week hopefully. cc: Adan Scott MD
[2018-05-15] MEDS: MELATONIN PO SCH (21:26)
[2018-05-15] MEDS: DESYREL PO SCH (21:26)
[2018-05-16] MEDS: PRILOSEC PO SCH (06:01)
[2018-05-16 07:23] LABS: AGAP 9; BUN 20 mg/dL (8-22); CALCIUM 8.8 mg/dL (8.8-10.2); CHLORIDE 96 mmol/L (98-107); COSMO 270; CREATININE 0.7 mg/dL (0.5-0.9); ESTIMATED GFR > 60; GLUCOSE 117 mg/dL (70-104); POTASSIUM 4.9 mmol/L (3.5-5.1); SODIUM 133 mmol/L (136-145); TCO2 29 mmol/L (25-35)
[2018-05-16] MEDS: NAMENDA PO SCH ×2 (10:42→20:53)
[2018-05-16] MEDS: SODIUM CHLORIDE PO SCH ×2 (10:42→20:52)
[2018-05-16] MEDS: GEODON PO SCH (10:42)
[2018-05-16] MEDS: GLUCOPHAGE PO SCH (10:42)
[2018-05-16] MEDS: FOLIC ACID PO SCH (10:42)
[2018-05-16] MEDS: MAG-OX PO SCH ×2 (10:42→20:53)
[2018-05-16] MEDS: ARICEPT PO SCH (10:42)
--- NOTE | 2018-05-16 17:23 | PROGRESS NOTE ---
DATE: 05/16/2018 SUBJECTIVE: Patient has no focal complaints. OBJECTIVE: She is sitting up in bed per usual. She smiles. She participates. She is really not belligerent or difficult to take care of in any way, at least from the physician standpoint. LABORATORY: Her sodium this morning is 133, that is pretty good for her, certainly not below 130. Her sugars are controlled. PROBLEM LIST: 1. Hyponatremia. She is stable. Continue treatments as follows. 2. Diabetes. That also appears to be overall stable. We will kind of them follow intermittently. DISPOSITION: Pending clinical status. I think she has gotten guardianship. Appreciate state legal services associated with that. We are going to get physical therapy to reevaluate her for her rehab potential, it is going to hopefully happen here tomorrow, and see how she does. cc: Adan Scott MD
[2018-05-16] MEDS: DESYREL PO SCH (20:53)
[2018-05-16] MEDS: MELATONIN PO SCH (20:53)
[2018-05-17] MEDS: PRILOSEC PO SCH (06:21)
[2018-05-17] MEDS: SODIUM CHLORIDE PO SCH ×2 (08:42→21:48)
[2018-05-17] MEDS: ARICEPT PO SCH (08:42)
[2018-05-17] MEDS: GLUCOPHAGE PO SCH (08:43)
[2018-05-17] MEDS: NAMENDA PO SCH ×2 (08:43→21:48)
[2018-05-17] MEDS: GEODON PO SCH (08:43)
[2018-05-17] MEDS: FOLIC ACID PO SCH (08:43)
[2018-05-17] MEDS: MAG-OX PO SCH ×2 (08:43→21:48)
--- NOTE | 2018-05-17 11:51 | Diag Imaging Result Doc PS360 ---
EXAM: CHEST-PORTABLE HISTORY: long-term care placement TECHNIQUE: Single view of the chest was performed portably. COMPARISON: 04/03/2018 FINDINGS: Heart size is within normal limits. There are old right rib fractures and an old ununited left clavicle fracture. There are scattered granulomata. Prominent interstitial markings are noted consistent with fibrosis. IMPRESSION: Scattered granulomata and fibrosis. No acute cardiopulmonary abnormality is identified. Electronically signed by Janay Denney 05/17/2018 11:48 AM
[2018-05-17] MEDS: MELATONIN PO SCH (21:48)
[2018-05-17] MEDS: DESYREL PO SCH (21:48)
--- NOTE | 2018-05-17 22:27 | PROGRESS NOTE ---
DATE: 05/17/2018 SUBJECTIVE: Patient has no complaints. She is still confused, disoriented. OBJECTIVE: Vital Signs: Reviewed. Temperature 97.8 degrees, pulse 71, respiratory rate 13, BP 130/99. General: Patient is in no current respiratory distress. Physical exam is unchanged. Cardiovascular: Regular rate. Chest: Clear. ASSESSMENT: 1. Hyponatremia. 2. Diabetes . 3. Dementia. PLAN: We will continue patient in the hospital. Continue to await guardianship and ability to transfer to long-term care. cc: Umair Underwood MD
[2018-05-18] MEDS: PRILOSEC PO SCH (06:25)
[2018-05-18] MEDS: NAMENDA PO SCH (08:34)
[2018-05-18] MEDS: FOLIC ACID PO SCH (08:34)
[2018-05-18] MEDS: GLUCOPHAGE PO SCH (08:34)
[2018-05-18] MEDS: ARICEPT PO SCH (08:34)
[2018-05-18] MEDS: SODIUM CHLORIDE PO SCH (08:34)
[2018-05-18] MEDS: MAG-OX PO SCH (08:34)
[2018-05-18] MEDS: GEODON PO SCH (08:34)
--- NOTE | 2018-05-18 12:35 | DISCHARGE SUMMARY ---
ADMISSION DATE: 04/07/2018 DISCHARGE DATE: 05/18/2018 DIAGNOSES: 1. Chronic hyponatremia. 2. Chronic obstructive pulmonary disease. 3. Schizophrenia. 4. Bipolar disorder. 5. Alzheimer's dementia. 6. Hypothyroid. 7. Diabetes mellitus. 8. Vitamin D deficiency. DIAGNOSTICS: Chest x-ray on 05/17/2018 revealed scattered granulomata and fibrosis. No acute cardiopulmonary abnormality identified. HOSPITAL COURSE: Ms. Rose was admitted to the hospital from [facility], having hyponatremia. In review of her chart, this is chronic, dating back to 2014, according to our records. 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 Once Celexa was discontinued, sodiums did increase. She actually had a sodium of 117 on admission. She was given Samsca, Celexa was held, and sodiums have since ranged 130 to 135. She is confused and disoriented, which has been her normal state throughout these hospitalizations as stated above. We did continue her Aricept, Namenda, and her trazodone. In regards to her diabetes, she did have a hemoglobin A1c of 6.4. We did continue her Glucophage daily. She carries a diagnosis of hypothyroidism. She is on no medications. TSH was 1.7 on the 08 of April and 3 on the 01 of April. On admission, she was treated with Rocephin. DISCHARGE PHYSICAL EXAMINATION: Cardiovascular: Regular rate and rhythm. S1 and S2 were appreciated. Pulmonary: Breath sounds were clear with no increased work of breathing noted. Chest does rise and fall symmetrically with respirations. Gastrointestinal: Abdomen is soft, nontender, nondistended with bowel sounds in all 4 quadrants. Neurologic: She is alert. She is oriented to herself. She knows that she is in a hospital. Further than that, she will not answer any questions at this time. DISCHARGE MEDICATIONS: 1. Aricept 10 mg p.o. daily. 2. Folic acid 1 mg p.o. daily. 3. Magnesium oxide 800 mg p.o. b.i.d. 4. Melatonin 5 mg at bedtime. 5. Namenda 10 mg p.o. b.i.d. 6. Glucophage 500 mg p.o. with breakfast. 7. Trazodone 25 mg p.o. at bedtime. 8. Geodon 40 mg p.o. daily. During this hospitalization, it was necessary that the patient have a guardian, which has been awarded through the courts. Thankfully, she is ready for discharge back to [facility]. She is being discharged in stable condition via first response for transport. TIME SPENT: This is a greater than 30 minute discharge. Dictated by REUBEN Fisher for Umair Underwood MD This chart was documented by, REUBEN Fisher and accurately reflects the services performed, treatment plan and medical decisions as attested by the providers signature Umair Underwood MD. cc: REUBEN Fisher MD
[2018-05-18 13:49] VITALS: BP 109/62
--- NOTE | 2018-05-19 02:51 | DISCHARGE SUMMARY ---
ADMISSION DATE: 04/07/2018 DISCHARGE DATE: 05/18/2018 ADDENDUM: The patient was seen and examined by myself. She had a prolonged but thankfully uneventful hospital course prolonged secondary to placement issues. She does have a history of diabetes and dementia. Please see full note. cc: Umair Underwood MD
== END 2018-05-18 15:53 | DRG 644 ==
LOC: P.MEDSURG 14:25 → P.ED 14:25 → SUATTDRO 22:50 → OBSVTOIN 22:50 → P.MEDSURG 04-12 11:36
PROVIDERS: ATTEND Family Medicine
CPT/HCPCS: 36415; 71010; 71045; 80048; 80053; 81001; 82948; 83036; 83735; 83930; 83935; 84443; 85025; 85027; 96360; 96361; 97116; 97161; 97163; 97530; 99285; 99291; A9270; J2060; J7030; XXXXX